=== PATIENT | female | born 1940 | race Caucasian/White ===

== ENCOUNTER 2018-05-12 09:54 | Inpatient (IN) | payer MEDICARE, MEDICAID ==
[~2018-05-12] VITALS: Ht 157.5 cm; Wt 94.3 kg
[2018-05-12 15:05] LABS: BG BASE EXCESS -1.5 mmol/L (-2.0-2.0); BG CARBOXYHEMOGLOBIN 1.1 % (0.5-1.5); BG DEOXYHEMOGLOBIN 6.5 % (0.0-5.0); BG FRACTION INSPIRED OXYGEN 21; BG HCO3 ACT 25.5 mmol/L (22.0-26.0); BG OXYGEN SATURATION 93.4 % (92.0-98.5); BG OXYHEMOGLOBIN 92.4 % (94.0-97.0); BG PCO2 52.3 mmHg (35.0-45.0); BG PH 7.306 (7.350-7.450); BG PO2 75.2 mmHg (75.0-100.0); BG SAMPLE SITE RIGHT BRACHIAL; BG TOTAL HEMOGLOBIN 13.1 g/dL (12.0-18.0); BG VENT MODE ROOM AIR
[2018-05-12 15:23] LABS: BASOPHILS % 0.4 % (0.0-2.0); EOSINOPHILS % 2.2 % (0.0-5.0); HEMATOCRIT. 37.9 % (36.0-48.0); HEMOGLOBIN. 12.6 g/dL (12.0-16.0); MEAN CORPUSCULAR HEMOGLOBIN 34.9 pg (28.0-32.0); MEAN CORPUSCULAR VOLUME 104.8 fL (81.0-99.0); MEAN PLATELET VOLUME 8.4 fl (7.4-10.4); MONOCYTES % 9.9 % (2.0-8.0); NEUTROPHILS % 68.5 % (40.0-76.0); PLATELET 264 x1000/uL (130-400); RED BLOOD CELL COUNT 3.61 mill/uL (4.2-5.4); RED CELL DISTRIBUTION WIDTH 14.9 % (11.6-14.6)
[2018-05-12 15:28] LABS: INR 1.2; PARTIAL THROMBOPLASTIN TIME 30.4 sec (23.4-31.0); PROTHROMBIN TIME 12.3 sec (9.1-11.1)
[2018-05-12] MEDS ORDERED: DEXTROSE 50% WATER 50ML SYRINGE IV ONE ×3 (15:52→21:30)
[2018-05-12 17:20] LABS: CHLORIDE 96 mEq/L (98-107)
[2018-05-12 17:27] LABS: PHOSPHORUS 5.2 mg/dL (2.5-4.9)
[2018-05-12] MEDS ORDERED: DEXT 5%/0.45% NACL 1000ML 1,000 ML IV SCH (22:38)
[2018-05-12] MEDS ORDERED: MAGNESIUM/ALUMINUM HYDROXIDE/SIMETHICONE 30ML UDC PO PRN (22:45)
[2018-05-12] MEDS ORDERED: CLONIDINE 0.1MG TABLET PO PRN (22:45)
[2018-05-12] MEDS ORDERED: ACETAMINOPHEN 325MG TABLET PO PRN (22:45)
[2018-05-12] MEDS ORDERED: DEXTROSE 50% WATER 50ML SYRINGE IV PRN (22:45)
[2018-05-12] MEDS ORDERED: ONDANSETRON HCL 4MG/2ML INJ IV PRN (22:45)
[2018-05-13] VITALS: BP 142/58
[2018-05-13 00:45] VITALS: BP 142/58
[2018-05-13 04:11] VITALS: BP 167/76
[2018-05-13] MEDS: BLOOD SUGAR DIAGNOSTIC STRIP TEST SCH ×4 (07:44→21:08)
[2018-05-13] MEDS: INSULIN LISPRO 100 UNITS/ML SUBCUT SCH ×4 (07:50→21:16)
[2018-05-13] MEDS ORDERED: LOSA50TA20 PO (11:50)
[2018-05-13] MEDS ORDERED: POTA20TA82 PO (11:50)
[2018-05-13] MEDS ORDERED: FURO80TA3 PO (11:50)
[2018-05-13] MEDS ORDERED: SERT25TA PO (11:50)
[2018-05-13] MEDS ORDERED: CARV6.2548 PO (11:50)
[2018-05-13] MEDS ORDERED: SEVE800T8 PO (11:50)
[2018-05-13] MEDS ORDERED: OMEP40CA34 PO (11:50)
[2018-05-13] MEDS ORDERED: GABA-529 MT (11:50)
[2018-05-13] MEDS ORDERED: GEMF600T PO (11:50)
[2018-05-13] MEDS ORDERED: CALC0.253 PO (11:50)
[2018-05-13] MEDS ORDERED: DONE10TA11 MT (11:50)
[2018-05-13 12:00] VITALS: BP 144/80
[2018-05-13] MEDS: CALCITRIOL 0.25MCG CAPSULE PO SCH (12:48)
[2018-05-13] MEDS: GABAPENTIN 100MG CAPSULE PO SCH ×2 (12:48→17:46)
[2018-05-13] MEDS: OMEPRAZOLE 20MG CAPSULE EXTENDED RELEASE PO SCH (12:48)
[2018-05-13] MEDS: POTASSIUM CHLORIDE 20MEQ TABLET SR PO SCH (12:48)
[2018-05-13] MEDS: FUROSEMIDE 80MG TABLET PO SCH (12:49)
[2018-05-13] MEDS: CARVEDILOL 6.25 MG TABLET PO SCH ×2 (12:49→21:08)
[2018-05-13] MEDS: LOSARTAN POTASSIUM 50 MG TABLET PO SCH ×2 (12:49→21:08)
[2018-05-13] MEDS ORDERED: MEDICATION NOT ON FORMULARY EA (Gabapentin 2 CAP) MT SCH (13:00)
[2018-05-13] MEDS: SERTRALINE HCL 25MG TABLET PO SCH (14:24)
[2018-05-13] MEDS ORDERED: MEDICATION NOT ON FORMULARY EA (Losartan Potassium 50 MG) PO SCH (17:00)
[2018-05-13] MEDS ORDERED: GEMFIBROZIL 600 MG PO SCH (17:00)
[2018-05-13] MEDS: GEMFIBROZIL 600MG TABLET PO SCH (17:46)
[2018-05-13 20:00] VITALS: BP 98/68
[2018-05-13] MEDS: DONEPEZIL HCL 10MG TABLET PO SCH (21:08)
[2018-05-14] VITALS (7 sets, daily range): BP systolic 100–122; BP diastolic 50–80
[2018-05-14] MEDS: BLOOD SUGAR DIAGNOSTIC STRIP TEST SCH ×4 (06:32→21:06)
[2018-05-14] MEDS: OMEPRAZOLE 20MG CAPSULE EXTENDED RELEASE PO SCH (06:32)
[2018-05-14] MEDS ORDERED: MEDICATION NOT ON FORMULARY EA (Omeprazole 40 MG) PO SCH (07:20)
[2018-05-14] MEDS: INSULIN LISPRO 100 UNITS/ML SUBCUT SCH ×4 (08:07→21:19)
[2018-05-14] MEDS ORDERED: MEDICATION NOT ON FORMULARY EA (Furosemide 80 MG) PO SCH (09:00)
[2018-05-14] MEDS ORDERED: SERTRALINE HCL 25 MG PO SCH (09:00)
[2018-05-14] MEDS ORDERED: MEDICATION NOT ON FORMULARY EA (Calcitriol 0.25 MCG) PO SCH ×2 (09:00)
[2018-05-14] MEDS: CARVEDILOL 6.25 MG TABLET PO SCH ×2 (09:00→21:05)
[2018-05-14] MEDS: LOSARTAN POTASSIUM 50 MG TABLET PO SCH ×2 (09:00→21:05)
[2018-05-14] MEDS: GABAPENTIN 100MG CAPSULE PO SCH ×3 (09:24→17:48)
[2018-05-14] MEDS: CALCITRIOL 0.25MCG CAPSULE PO SCH (09:24)
[2018-05-14] MEDS: FUROSEMIDE 80MG TABLET PO SCH (09:24)
[2018-05-14] MEDS: SERTRALINE HCL 25MG TABLET PO SCH (09:24)
[2018-05-14] MEDS: GEMFIBROZIL 600MG TABLET PO SCH ×2 (09:25→17:48)
[2018-05-14] MEDS: POTASSIUM CHLORIDE 20MEQ TABLET SR PO SCH (09:25)
[2018-05-14] MEDS: SEVELAMER CARBONATE 800 MG TABLET PO SCH (17:48)
[2018-05-14] MEDS: DONEPEZIL HCL 10MG TABLET PO SCH (21:06)
[2018-05-15] VITALS: BP 109/60
[2018-05-15 04:00] VITALS: BP 110/70
[2018-05-15] MEDS: OMEPRAZOLE 20MG CAPSULE EXTENDED RELEASE PO SCH (06:30)
[2018-05-15] MEDS: BLOOD SUGAR DIAGNOSTIC STRIP TEST SCH ×4 (06:30→21:00)
[2018-05-15 08:00] VITALS: BP 114/53
[2018-05-15] MEDS: INSULIN LISPRO 100 UNITS/ML SUBCUT SCH ×4 (08:03→21:00)
[2018-05-15] MEDS: GABAPENTIN 100MG CAPSULE PO SCH ×3 (08:27→18:59)
[2018-05-15] MEDS: CALCITRIOL 0.25MCG CAPSULE PO SCH (08:27)
[2018-05-15] MEDS: GEMFIBROZIL 600MG TABLET PO SCH ×2 (08:28→18:58)
[2018-05-15] MEDS: LOSARTAN POTASSIUM 50 MG TABLET PO SCH ×2 (08:28→21:10)
[2018-05-15] MEDS: POTASSIUM CHLORIDE 20MEQ TABLET SR PO SCH (08:28)
[2018-05-15] MEDS: SERTRALINE HCL 25MG TABLET PO SCH (08:28)
[2018-05-15] MEDS: SEVELAMER CARBONATE 800 MG TABLET PO SCH ×3 (08:28→18:59)
[2018-05-15] MEDS: FUROSEMIDE 80MG TABLET PO SCH (08:28)
[2018-05-15 12:00] VITALS: BP 116/50
[2018-05-15] MEDS: CARVEDILOL 6.25 MG TABLET PO SCH ×2 (13:21→21:11)
[2018-05-15 16:00] VITALS: BP 115/56
[2018-05-15 20:00] VITALS: BP 120/61
[2018-05-15] MEDS: DONEPEZIL HCL 10MG TABLET PO SCH (21:10)
[2018-05-16] VITALS (7 sets, daily range): BP systolic 104–144; BP diastolic 46–86
[2018-05-16] MEDS: BLOOD SUGAR DIAGNOSTIC STRIP TEST SCH ×4 (06:20→21:04)
[2018-05-16] MEDS: OMEPRAZOLE 20MG CAPSULE EXTENDED RELEASE PO SCH (06:21)
[2018-05-16] MEDS: FUROSEMIDE 80MG TABLET PO SCH (08:40)
[2018-05-16] MEDS: SERTRALINE HCL 25MG TABLET PO SCH (08:40)
[2018-05-16] MEDS: POTASSIUM CHLORIDE 20MEQ TABLET SR PO SCH (08:40)
[2018-05-16] MEDS: GEMFIBROZIL 600MG TABLET PO SCH ×2 (08:40→17:12)
[2018-05-16] MEDS: GABAPENTIN 100MG CAPSULE PO SCH ×3 (08:41→17:12)
[2018-05-16] MEDS: CALCITRIOL 0.25MCG CAPSULE PO SCH (08:41)
[2018-05-16] MEDS: LOSARTAN POTASSIUM 50 MG TABLET PO SCH ×2 (08:41→20:29)
[2018-05-16] MEDS: SEVELAMER CARBONATE 800 MG TABLET PO SCH ×3 (08:41→17:12)
[2018-05-16] MEDS: INSULIN LISPRO 100 UNITS/ML SUBCUT SCH ×4 (08:45→21:08)
[2018-05-16] MEDS: CARVEDILOL 6.25 MG TABLET PO SCH ×2 (12:22→20:28)
[2018-05-16] MEDS: DONEPEZIL HCL 10MG TABLET PO SCH (21:07)
[2018-05-16 22:12] LABS: BASOPHILS % 0.5 % (0.0-2.0); EOSINOPHILS % 2.1 % (0.0-5.0); HEMATOCRIT. 33.4 % (36.0-48.0); HEMOGLOBIN. 11.2 g/dL (12.0-16.0); LYMPHOCYTES % 17.7 % (20.0-50.0); MEAN CORPUSCULAR HEMOGLOBIN 34.6 pg (28.0-32.0); MEAN CORPUSCULAR VOLUME 103.3 fL (81.0-99.0); MEAN PLATELET VOLUME 8.3 fl (7.4-10.4); MONOCYTES % 11.4 % (2.0-8.0); NEUTROPHILS % 68.3 % (40.0-76.0); PLATELET 155 x1000/uL (130-400); RED BLOOD CELL COUNT 3.23 mill/uL (4.2-5.4); RED CELL DISTRIBUTION WIDTH 14.6 % (11.6-14.6)
[2018-05-17] VITALS (8 sets, daily range): BP systolic 88–139; BP diastolic 46–60
[2018-05-17] MEDS: OMEPRAZOLE 20MG CAPSULE EXTENDED RELEASE PO SCH (06:00)
[2018-05-17] MEDS: BLOOD SUGAR DIAGNOSTIC STRIP TEST SCH ×4 (07:20→20:30)
[2018-05-17] MEDS: SEVELAMER CARBONATE 800 MG TABLET PO SCH ×3 (07:36→16:58)
[2018-05-17] MEDS: POTASSIUM CHLORIDE 20MEQ TABLET SR PO SCH (07:36)
[2018-05-17] MEDS: LOSARTAN POTASSIUM 50 MG TABLET PO SCH ×2 (07:37→20:21)
[2018-05-17] MEDS: CALCITRIOL 0.25MCG CAPSULE PO SCH (07:37)
[2018-05-17] MEDS: SERTRALINE HCL 25MG TABLET PO SCH (07:37)
[2018-05-17] MEDS: GEMFIBROZIL 600MG TABLET PO SCH ×2 (07:37→16:58)
[2018-05-17] MEDS: GABAPENTIN 100MG CAPSULE PO SCH ×3 (07:37→16:58)
[2018-05-17] MEDS: FUROSEMIDE 80MG TABLET PO SCH (07:37)
[2018-05-17] MEDS: INSULIN LISPRO 100 UNITS/ML SUBCUT SCH ×4 (07:42→20:44)
[2018-05-17 07:48] LABS: BASOPHILS % 0.4 % (0.0-2.0); HEMOGLOBIN. 11.4 g/dL (12.0-16.0); LYMPHOCYTES % 12.7 % (20.0-50.0); MEAN CORPUSCULAR HEMOGLOBIN 34.5 pg (28.0-32.0); MEAN CORPUSCULAR VOLUME 103.2 fL (81.0-99.0); MEAN PLATELET VOLUME 8.8 fl (7.4-10.4); MONOCYTES % 8.5 % (2.0-8.0); NEUTROPHILS % 76.4 % (40.0-76.0); PLATELET 169 x1000/uL (130-400); RED BLOOD CELL COUNT 3.29 mill/uL (4.2-5.4); RED CELL DISTRIBUTION WIDTH 14.5 % (11.6-14.6)
[2018-05-17] MEDS: CARVEDILOL 6.25 MG TABLET PO SCH ×2 (08:22→20:21)
[2018-05-17] MEDS: LACTULOSE 20G/30ML UDC PO SCH ×3 (10:47→21:16)
[2018-05-17] MEDS: DONEPEZIL HCL 10MG TABLET PO SCH (20:41)
[2018-05-18] VITALS: BP 99/51
[2018-05-18 04:00] VITALS: BP 100/50
[2018-05-18] MEDS: LACTULOSE 20G/30ML UDC PO SCH ×2 (06:14→13:20)
[2018-05-18] MEDS: OMEPRAZOLE 20MG CAPSULE EXTENDED RELEASE PO SCH (06:15)
[2018-05-18] MEDS: BLOOD SUGAR DIAGNOSTIC STRIP TEST SCH ×2 (06:22→13:12)
[2018-05-18 08:01] VITALS: BP 110/83
[2018-05-18 08:25] LABS: HEMATOCRIT. 34.4 % (36.0-48.0); HEMOGLOBIN. 11.4 g/dL (12.0-16.0); MEAN CORPUSCULAR HEMOGLOBIN 34.4 pg (28.0-32.0); MEAN PLATELET VOLUME 9.2 fl (7.4-10.4); PLATELET 171 x1000/uL (130-400); RED BLOOD CELL COUNT 3.31 mill/uL (4.2-5.4); RED CELL DISTRIBUTION WIDTH 14.3 % (11.6-14.6)
[2018-05-18] MEDS: INSULIN LISPRO 100 UNITS/ML SUBCUT SCH ×2 (08:27→13:18)
[2018-05-18] MEDS: CALCITRIOL 0.25MCG CAPSULE PO SCH (08:32)
[2018-05-18] MEDS: GEMFIBROZIL 600MG TABLET PO SCH (08:32)
[2018-05-18] MEDS: GABAPENTIN 100MG CAPSULE PO SCH ×2 (08:32→13:20)
[2018-05-18] MEDS: SEVELAMER CARBONATE 800 MG TABLET PO SCH ×2 (08:32→13:20)
[2018-05-18] MEDS: FUROSEMIDE 80MG TABLET PO SCH (08:32)
[2018-05-18] MEDS: POTASSIUM CHLORIDE 20MEQ TABLET SR PO SCH (08:32)
[2018-05-18] MEDS: SERTRALINE HCL 25MG TABLET PO SCH (08:32)
[2018-05-18] MEDS: LOSARTAN POTASSIUM 50 MG TABLET PO SCH (09:00)
[2018-05-18] MEDS: CARVEDILOL 6.25 MG TABLET PO SCH (09:00)
[2018-05-18 12:25] VITALS: BP 82/56
[2018-05-18 13:50] LABS: PLATELET ESTIMATE NORMAL
[2018-05-18 16:40] VITALS: BP 114/54
[2018-05-18] MEDS ORDERED: OXYCODONE HCL 5MG TABLET PO SCH (17:00)
[2018-05-18 17:24] VITALS: BP 114/54
== END 2018-05-18 19:09 | disposition home health service (06) | DRG 640 ==
LOC: ER 09:54 → ENRESERV 15:35 → EDBEDREQ 17:52 → 6WST 18:06 → EDBEDREQ 18:09 → EDBEDREQTM 18:09 → 6WST 05-14 21:15
PROVIDERS: ADMIT Internal Medicine; ATTEND Internal Medicine
DX: E66.01 Morbid (severe) obesity due to excess calories (principal); E43 Unspecified severe protein-calorie malnutrition; G93.41 Metabolic encephalopathy; N18.6 End stage renal disease; I13.11 Hypertensive heart and chronic kidney disease without heart failure, with stage 5 chronic kidney disease, or end stage renal disease; E87.1 Hypo-osmolality and hyponatremia; I67.82 Cerebral ischemia; E11.649 Type 2 diabetes mellitus with hypoglycemia without coma; M25.562 Pain in left knee; R26.9 Unspecified abnormalities of gait and mobility; E11.22 Type 2 diabetes mellitus with diabetic chronic kidney disease; E83.39 Other disorders of phosphorus metabolism; M16.11 Unilateral primary osteoarthritis, right hip; R29.6 Repeated falls; Z79.4 Long term (current) use of insulin; Z82.49 Family history of ischemic heart disease and other diseases of the circulatory system; Z83.3 Family history of diabetes mellitus; Z86.73 Personal history of transient ischemic attack (TIA), and cerebral infarction without residual deficits; Z99.2 Dependence on renal dialysis; Z68.38 Body mass index [BMI] 38.0-38.9, adult
CPT/HCPCS: 36415; 36600; 70551; 71045; 72192; 73521; 73562; 73610; 73700; 80048; 82140; 82375; 82805; 82962; 83735; 84100; 84484; 86850; 86900; 92523; 92610; 93005; 97162; 97167; 97530; 97535; 99291; J1815; J2405

== ENCOUNTER 2018-05-20 14:09 | Inpatient (IN) | payer MEDICARE, MEDICAID ==
[~2018-05-20] VITALS: Ht 152.4 cm; Wt 90.3 kg
[~2018-05-20 14:09] MED LIST: CALC0.253 PO; CARV6.2548 PO; DONE10TA11 MT; FURO80TA3 PO; GABA-529 MT; GEMF600T PO; LOSA50TA20 PO; OMEP40CA34 PO; POTA20TA82 PO; SERT25TA PO; SEVE800T8 PO
[2018-05-20] MEDS ORDERED: LEVOFLOXACIN 750MG PREMIX 150 ML IV ONE (15:00)
[2018-05-20] MEDS ORDERED: SODIUM CHLORIDE 0.9% 1000ML BAG (SEPSIS BOLUS) IV ONE (15:00)
[2018-05-20] MEDS ORDERED: ASPIRIN 81MG TABLET PO ONE (15:00)
[2018-05-20] MEDS ORDERED: IPRATROPIUM BROMIDE (0.02%) 0.5MG/2.5ML NEB HHN STA (15:07)
[2018-05-20] MEDS ORDERED: ALBUTEROL (0.083%) 2.5MG/3ML NEB HHN STA (15:07)
[2018-05-20] MEDS ORDERED: METHYLPREDNISOLONE SOD SUCC 125 MG/2 ML VIAL IV STA (15:07)
[2018-05-20 15:56] LABS: HEMATOCRIT. 33.4 % (36.0-48.0); HEMOGLOBIN. 11.1 g/dL (12.0-16.0); MEAN CORPUSCULAR HEMOGLOBIN 34.4 pg (28.0-32.0); MEAN CORPUSCULAR VOLUME 103.5 fL (81.0-99.0); MEAN PLATELET VOLUME 8.9 fl (7.4-10.4); PLATELET 159 x1000/uL (130-400); RED BLOOD CELL COUNT 3.23 mill/uL (4.2-5.4); RED CELL DISTRIBUTION WIDTH 14.5 % (11.6-14.6)
[2018-05-20 16:01] LABS: CHLORIDE 91 mEq/L (98-107)
[2018-05-20 16:02] LABS: PARTIAL THROMBOPLASTIN TIME 42.1 sec (23.4-31.0); PROTHROMBIN TIME 19.5 sec (9.1-11.1)
[2018-05-20 16:41] LABS: PLATELET ESTIMATE NORMAL
[2018-05-20] MEDS ORDERED: IPRATROPIUM/ALBUTEROL 0.5-3(2.5)MG/3ML NEB INH PRN (19:45)
[2018-05-20] MEDS ORDERED: CLONIDINE 0.1MG TABLET PO PRN (19:45)
[2018-05-20] MEDS ORDERED: LEVOFLOXACIN 500MG PREMIX 100 ML IV SCH (19:45)
[2018-05-20] MEDS ORDERED: ONDANSETRON HCL 4MG/2ML INJ IV PRN (19:45)
[2018-05-20 20:23] LABS: COLOR URINE YELLOW (YELLOW)
[2018-05-20 20:24] LABS: CLARITY URINE CLEAR (CLEAR); SPECIFIC GRAVITY URINE 1.016 (1.005-1.030)
[2018-05-20 20:26] LABS: PROTEIN URINE 1+ (NEGATIVE)
[2018-05-20 20:27] LABS: KETONES URINE NEGATIVE (NEGATIVE); OCCULT BLOOD URINE 2+ (NEGATIVE)
[2018-05-20 20:28] LABS: LEUKOCYTE ESTERASE URINE 2+ (NEGATIVE); NITRITE URINE NEGATIVE (NEGATIVE); UROBILINOGEN URINE 0.2 E.U./dL (0.2-1.0)
[2018-05-21] VITALS (15 sets, daily range): BP systolic 94–166; BP diastolic 53–126
[2018-05-21] MEDS: IPRATROPIUM/ALBUTEROL 0.5-3(2.5)MG/3ML NEB HHN SCH ×4 (01:54→21:45)
[2018-05-21] MEDS: BLOOD SUGAR DIAGNOSTIC STRIP TEST SCH ×4 (06:47→20:59)
[2018-05-21] MEDS: SODIUM CHLORIDE 0.9% INJ 3ML FLUSH IVF SCH ×3 (06:48→20:59)
[2018-05-21] MEDS: INSULIN LISPRO 100 UNITS/ML SUBCUT SCH ×4 (08:20→20:59)
[2018-05-21] MEDS: OMEPRAZOLE 20MG CAPSULE EXTENDED RELEASE PO SCH (09:30)
[2018-05-21] MEDS: SERTRALINE HCL 25MG TABLET PO SCH (09:30)
[2018-05-21] MEDS: CALCITRIOL 0.25MCG CAPSULE PO SCH (09:30)
[2018-05-21] MEDS: GABAPENTIN 100MG CAPSULE PO SCH ×3 (09:30→16:38)
[2018-05-21] MEDS: CARVEDILOL 6.25 MG TABLET PO SCH ×2 (09:30→22:10)
[2018-05-21] MEDS: SEVELAMER CARBONATE 800 MG TABLET PO SCH ×2 (12:08→16:38)
[2018-05-21] MEDS ORDERED: MEDICATION NOT ON FORMULARY EA (Sevelamer Carbonate (Renvela) 800 MG) PO SCH (13:00)
[2018-05-21] MEDS ORDERED: MEDICATION NOT ON FORMULARY EA (Gabapentin 2 CAP) MT SCH (13:00)
[2018-05-21] MEDS ORDERED: HEPARIN SODIUM 1,000 UNIT/1ML VIAL IV SCH (13:00)
[2018-05-21] MEDS: GEMFIBROZIL 600MG TABLET PO SCH (16:38)
[2018-05-21] MEDS ORDERED: GEMFIBROZIL 600 MG PO SCH (17:00)
[2018-05-21] MEDS: DIPHENHYDRAMINE 50MG/ML VIAL IV PRN (22:16)
[2018-05-21] MEDS: DONEPEZIL HCL 10MG TABLET PO SCH (22:19)
[2018-05-22] VITALS (14 sets, daily range): BP systolic 99–176; BP diastolic 48–109
[2018-05-22] MEDS: IPRATROPIUM/ALBUTEROL 0.5-3(2.5)MG/3ML NEB HHN SCH ×4 (02:42→20:55)
[2018-05-22] MEDS: DIPHENHYDRAMINE 50MG/ML VIAL IV PRN (02:56)
[2018-05-22] MEDS: DEXTROSE 50% WATER 50ML SYRINGE IV PRN ×2 (05:39→11:34)
[2018-05-22] MEDS: SODIUM CHLORIDE 0.9% INJ 3ML FLUSH IVF SCH ×3 (06:02→21:44)
[2018-05-22] MEDS: OMEPRAZOLE 20MG CAPSULE EXTENDED RELEASE PO SCH (06:03)
[2018-05-22] MEDS: BLOOD SUGAR DIAGNOSTIC STRIP TEST SCH ×4 (06:03→21:43)
[2018-05-22] MEDS ORDERED: MEDICATION NOT ON FORMULARY EA (Omeprazole 40 MG) PO SCH (06:50)
[2018-05-22] MEDS: INSULIN LISPRO 100 UNITS/ML SUBCUT SCH ×4 (07:20→21:00)
[2018-05-22] MEDS: GEMFIBROZIL 600MG TABLET PO SCH ×2 (08:22→17:00)
[2018-05-22] MEDS: SERTRALINE HCL 25MG TABLET PO SCH (08:22)
[2018-05-22] MEDS: CALCITRIOL 0.25MCG CAPSULE PO SCH (08:22)
[2018-05-22] MEDS: CARVEDILOL 6.25 MG TABLET PO SCH ×2 (08:22→21:00)
[2018-05-22] MEDS: SEVELAMER CARBONATE 800 MG TABLET PO SCH ×3 (08:22→17:20)
[2018-05-22] MEDS: GABAPENTIN 100MG CAPSULE PO SCH (08:23)
[2018-05-22] MEDS ORDERED: SERTRALINE HCL 25 MG PO SCH (09:00)
[2018-05-22] MEDS ORDERED: MEDICATION NOT ON FORMULARY EA (Calcitriol 0.25 MCG) PO SCH (09:00)
[2018-05-22] MEDS ORDERED: DIPHENHYDRAMINE 50MG/ML VIAL IV PRN (13:15)
[2018-05-22] MEDS ORDERED: DEXTROSE 10% WATER 500 ML IV ONE (13:15)
[2018-05-22] MEDS: LEVOFLOXACIN 500MG PREMIX 100 ML IV SCH (14:27)
[2018-05-22 16:17] LABS: CHLORIDE 95 mEq/L (98-107)
[2018-05-22 16:23] LABS: PHOSPHORUS 6.6 mg/dL (2.5-4.9)
[2018-05-22] MEDS ORDERED: LEVOFLOXACIN 500MG PREMIX 100 ML IV SCH (17:00)
[2018-05-22] MEDS: DONEPEZIL HCL 10MG TABLET PO SCH (21:00)
[2018-05-22] MEDS ORDERED: LORAZEPAM 2MG/ML CPJ IM PRN (23:15)
[2018-05-22] MEDS: LORAZEPAM 2MG/ML CPJ IV PRN (23:36)
[2018-05-23] VITALS (13 sets, daily range): BP systolic 109–184; BP diastolic 51–112
[2018-05-23] MEDS: SODIUM CHLORIDE 0.9% INJ 3ML FLUSH IVF SCH ×3 (06:24→22:15)
[2018-05-23] MEDS: OMEPRAZOLE 20MG CAPSULE EXTENDED RELEASE PO SCH (06:24)
[2018-05-23] MEDS: BLOOD SUGAR DIAGNOSTIC STRIP TEST SCH ×4 (06:24→22:14)
[2018-05-23] MEDS: DEXTROSE 50% WATER 50ML SYRINGE IV PRN (06:32)
[2018-05-23] MEDS: SEVELAMER CARBONATE 800 MG TABLET PO SCH ×3 (07:20→17:42)
[2018-05-23] MEDS: INSULIN LISPRO 100 UNITS/ML SUBCUT SCH ×4 (07:20→22:14)
[2018-05-23] MEDS: IPRATROPIUM/ALBUTEROL 0.5-3(2.5)MG/3ML NEB HHN SCH ×4 (08:32→21:01)
[2018-05-23] MEDS: CALCITRIOL 0.25MCG CAPSULE PO SCH (09:00)
[2018-05-23] MEDS: GEMFIBROZIL 600MG TABLET PO SCH ×2 (09:00→17:42)
[2018-05-23] MEDS: CARVEDILOL 6.25 MG TABLET PO SCH ×2 (09:00→19:41)
[2018-05-23] MEDS: SERTRALINE HCL 25MG TABLET PO SCH (09:00)
[2018-05-23] MEDS: GUAIFENESIN 200MG/10ML SUGAR FREE UDC PO PRN (19:36)
[2018-05-23] MEDS: DONEPEZIL HCL 10MG TABLET PO SCH (19:36)
[2018-05-24] VITALS (13 sets, daily range): BP systolic 116–154; BP diastolic 41–107
[2018-05-24] MEDS: IPRATROPIUM/ALBUTEROL 0.5-3(2.5)MG/3ML NEB HHN SCH ×3 (01:21→21:33)
[2018-05-24] MEDS: BLOOD SUGAR DIAGNOSTIC STRIP TEST SCH ×4 (05:49→20:56)
[2018-05-24] MEDS: SODIUM CHLORIDE 0.9% INJ 3ML FLUSH IVF SCH ×3 (05:50→20:59)
[2018-05-24] MEDS: INSULIN LISPRO 100 UNITS/ML SUBCUT SCH ×4 (07:20→20:59)
[2018-05-24] MEDS: FAMOTIDINE 20MG TABLET PO SCH (08:12)
[2018-05-24] MEDS: CALCITRIOL 0.25MCG CAPSULE PO SCH (08:12)
[2018-05-24] MEDS: GEMFIBROZIL 600MG TABLET PO SCH ×2 (08:12→16:50)
[2018-05-24] MEDS: SERTRALINE HCL 25MG TABLET PO SCH (08:12)
[2018-05-24] MEDS: SEVELAMER CARBONATE 800 MG TABLET PO SCH ×3 (08:12→16:50)
[2018-05-24] MEDS: CARVEDILOL 6.25 MG TABLET PO SCH ×2 (08:13→20:56)
[2018-05-24 09:47] LABS: BASOPHILS % 0.4 % (0.0-2.0); EOSINOPHILS % 0.6 % (0.0-5.0); HEMATOCRIT. 30.4 % (36.0-48.0); HEMOGLOBIN. 10.1 g/dL (12.0-16.0); LYMPHOCYTES % 8.2 % (20.0-50.0); MEAN CORPUSCULAR HEMOGLOBIN 34.3 pg (28.0-32.0); MEAN CORPUSCULAR VOLUME 103.3 fL (81.0-99.0); MEAN PLATELET VOLUME 8.3 fl (7.4-10.4); MONOCYTES % 8.2 % (2.0-8.0); NEUTROPHILS % 82.6 % (40.0-76.0); PLATELET 137 x1000/uL (130-400); RED BLOOD CELL COUNT 2.95 mill/uL (4.2-5.4)
[2018-05-24] MEDS: LEVOFLOXACIN 500MG PREMIX 100 ML IV SCH (14:11)
[2018-05-24] MEDS ORDERED: IOHEXOL-300 100 ML BOTTLE ONE (15:01)
[2018-05-24] MEDS: ACETAMINOPHEN 325MG TABLET PO PRN (19:04)
[2018-05-24] MEDS: DONEPEZIL HCL 10MG TABLET PO SCH (20:55)
[2018-05-25] VITALS (11 sets, daily range): BP systolic 93–168; BP diastolic 46–79
[2018-05-25] MEDS: IPRATROPIUM/ALBUTEROL 0.5-3(2.5)MG/3ML NEB HHN SCH ×4 (01:31→20:51)
[2018-05-25 06:52] LABS: BASOPHILS % 0.1 % (0.0-2.0); EOSINOPHILS % 0.5 % (0.0-5.0); HEMATOCRIT. 29.4 % (36.0-48.0); HEMOGLOBIN. 9.8 g/dL (12.0-16.0); LYMPHOCYTES % 7.3 % (20.0-50.0); MEAN CORPUSCULAR HEMOGLOBIN 34.5 pg (28.0-32.0); MEAN CORPUSCULAR VOLUME 103.5 fL (81.0-99.0); MEAN PLATELET VOLUME 8.4 fl (7.4-10.4); MONOCYTES % 9.1 % (2.0-8.0); PLATELET 124 x1000/uL (130-400); RED BLOOD CELL COUNT 2.84 mill/uL (4.2-5.4); RED CELL DISTRIBUTION WIDTH 13.6 % (11.6-14.6)
[2018-05-25] MEDS: SODIUM CHLORIDE 0.9% INJ 3ML FLUSH IVF SCH ×3 (06:59→21:21)
[2018-05-25] MEDS: BLOOD SUGAR DIAGNOSTIC STRIP TEST SCH ×4 (06:59→21:00)
[2018-05-25] MEDS: INSULIN LISPRO 100 UNITS/ML SUBCUT SCH ×4 (07:20→21:00)
[2018-05-25] MEDS: SEVELAMER CARBONATE 800 MG TABLET PO SCH ×3 (10:16→16:34)
[2018-05-25] MEDS: SERTRALINE HCL 25MG TABLET PO SCH (10:16)
[2018-05-25] MEDS: GUAIFENESIN 200MG/10ML SUGAR FREE UDC PO PRN (10:16)
[2018-05-25] MEDS: FAMOTIDINE 20MG TABLET PO SCH (10:16)
[2018-05-25] MEDS: CALCITRIOL 0.25MCG CAPSULE PO SCH (10:16)
[2018-05-25] MEDS: CARVEDILOL 6.25 MG TABLET PO SCH ×2 (10:17→21:00)
[2018-05-25] MEDS: GEMFIBROZIL 600MG TABLET PO SCH ×2 (10:17→16:34)
[2018-05-25] MEDS: DONEPEZIL HCL 10MG TABLET PO SCH (21:00)
[2018-05-26] VITALS (12 sets, daily range): BP systolic 97–161; BP diastolic 32–99
[2018-05-26] MEDS: IPRATROPIUM/ALBUTEROL 0.5-3(2.5)MG/3ML NEB HHN SCH ×4 (04:24→21:21)
[2018-05-26] MEDS: SODIUM CHLORIDE 0.9% INJ 3ML FLUSH IVF SCH ×3 (06:19→21:22)
[2018-05-26] MEDS: BLOOD SUGAR DIAGNOSTIC STRIP TEST SCH ×4 (06:44→21:18)
[2018-05-26] MEDS: INSULIN LISPRO 100 UNITS/ML SUBCUT SCH ×4 (07:20→21:21)
[2018-05-26] MEDS: CALCITRIOL 0.25MCG CAPSULE PO SCH (08:01)
[2018-05-26] MEDS: CARVEDILOL 6.25 MG TABLET PO SCH ×2 (08:01→21:13)
[2018-05-26] MEDS: GEMFIBROZIL 600MG TABLET PO SCH ×2 (08:01→17:15)
[2018-05-26] MEDS: FAMOTIDINE 20MG TABLET PO SCH (08:01)
[2018-05-26] MEDS: SEVELAMER CARBONATE 800 MG TABLET PO SCH ×3 (08:01→17:15)
[2018-05-26] MEDS: SERTRALINE HCL 50MG TABLET PO SCH (08:01)
[2018-05-26] MEDS ORDERED: LEVOFLOXACIN 500MG TABLET PO SCH (11:00)
[2018-05-26] MEDS: MEGESTROL ACETATE 400 MG/10 ML UDC PO SCH (17:15)
[2018-05-26] MEDS: DONEPEZIL HCL 10MG TABLET PO SCH (21:13)
[2018-05-26] MEDS: GUAIFENESIN 200MG/10ML SUGAR FREE UDC PO PRN (21:26)
[2018-05-26] MEDS: LORAZEPAM 2MG/ML CPJ IV PRN (21:26)
[2018-05-27] VITALS (8 sets, daily range): BP systolic 115–161; BP diastolic 59–84
[2018-05-27] MEDS: IPRATROPIUM/ALBUTEROL 0.5-3(2.5)MG/3ML NEB HHN SCH ×2 (00:53)
[2018-05-27] MEDS: SODIUM CHLORIDE 0.9% INJ 3ML FLUSH IVF SCH ×3 (05:55→21:05)
[2018-05-27] MEDS: BLOOD SUGAR DIAGNOSTIC STRIP TEST SCH ×4 (07:07→21:45)
[2018-05-27] MEDS: INSULIN LISPRO 100 UNITS/ML SUBCUT SCH ×4 (07:49→21:00)
[2018-05-27] MEDS: SEVELAMER CARBONATE 800 MG TABLET PO SCH ×4 (08:10→18:08)
[2018-05-27] MEDS: FAMOTIDINE 20MG TABLET PO SCH ×2 (09:00→09:17)
[2018-05-27] MEDS: SERTRALINE HCL 50MG TABLET PO SCH ×2 (09:00→09:17)
[2018-05-27] MEDS: GEMFIBROZIL 600MG TABLET PO SCH ×3 (09:00→18:08)
[2018-05-27] MEDS: CALCITRIOL 0.25MCG CAPSULE PO SCH ×2 (09:00→09:17)
[2018-05-27] MEDS: CARVEDILOL 6.25 MG TABLET PO SCH ×3 (09:00→21:05)
[2018-05-27] MEDS: MEGESTROL ACETATE 400 MG/10 ML UDC PO SCH ×3 (09:00→18:08)
[2018-05-27] MEDS: ACETAMINOPHEN 325MG TABLET PO PRN (21:05)
[2018-05-27] MEDS: DONEPEZIL HCL 10MG TABLET PO SCH (21:05)
== END 2018-05-28 00:35 | DRG 193 ==
LOC: ER 14:09 → 3WST 18:24 → EDBEDREQ 18:42 → EDBEDREQTM 18:42 → ENRESERV 22:10 → 7WST 05-27 01:38
PROVIDERS: ADMIT Internal Medicine; ATTEND Internal Medicine
PROC: 5A1D70Z Performance of Urinary Filtration, Intermittent, Less than 6 Hours Per Day (ICD-10-PCS; principal; 2018-05-21)
PROC: 02HV33Z Insertion of Infusion Device into Superior Vena Cava, Percutaneous Approach (ICD-10-PCS; 2018-05-21)
PROC: B548ZZA Ultrasonography of Superior Vena Cava, Guidance (ICD-10-PCS; 2018-05-21)
PROC: 5A1D70Z Performance of Urinary Filtration, Intermittent, Less than 6 Hours Per Day (ICD-10-PCS; 2018-05-22)
PROC: 5A1D70Z Performance of Urinary Filtration, Intermittent, Less than 6 Hours Per Day (ICD-10-PCS; 2018-05-24)
PROC: 5A1D70Z Performance of Urinary Filtration, Intermittent, Less than 6 Hours Per Day (ICD-10-PCS; 2018-05-26)
DX: J18.9 Pneumonia, unspecified organism (principal); G93.41 Metabolic encephalopathy; N18.6 End stage renal disease; I13.2 Hypertensive heart and chronic kidney disease with heart failure and with stage 5 chronic kidney disease, or end stage renal disease; E11.649 Type 2 diabetes mellitus with hypoglycemia without coma; M19.90 Unspecified osteoarthritis, unspecified site; T68.XXXA Hypothermia, initial encounter; F29 Unspecified psychosis not due to a substance or known physiological condition; E11.22 Type 2 diabetes mellitus with diabetic chronic kidney disease; F41.9 Anxiety disorder, unspecified; F32.9 Major depressive disorder, single episode, unspecified; I50.9 Heart failure, unspecified; E11.65 Type 2 diabetes mellitus with hyperglycemia; Z99.81 Dependence on supplemental oxygen; Z99.2 Dependence on renal dialysis; Z79.899 Other long term (current) drug therapy; Z86.73 Personal history of transient ischemic attack (TIA), and cerebral infarction without residual deficits
CPT/HCPCS: 36415; 36556; 70470; 71045; 76937; 80048; 82947; 82962; 83605; 83735; 84100; 84145; 84484; 87804; 93005; 93970; 94640; 94644; 96365; 96366; 96375; 97161; 97530; 99291; C1752; J1200; J1644; J1815; J1956; J2060; J2930; J7030; J7050; J7611; J7620; Q9967; A4315

== ENCOUNTER 2018-07-10 09:10 | Emergency (ER) | payer MEDICARE, MEDICAID ==
[2018-07-10] VITALS (14 sets, daily range): BP systolic 81–126; BP diastolic 44–76
[~2018-07-10] VITALS: Ht 167.6 cm; Wt 80.0 kg
[2018-07-10 10:11] LABS: BASOPHILS % 1.4 % (0.0-2.0); EOSINOPHILS % 4.5 % (0.0-5.0); HEMATOCRIT. 35.3 % (36.0-48.0); HEMOGLOBIN. 11.4 g/dL (12.0-16.0); LYMPHOCYTES % 32.2 % (20.0-50.0); MEAN CORPUSCULAR HEMOGLOBIN 34.5 pg (28.0-32.0); MEAN CORPUSCULAR VOLUME 106.9 fL (81.0-99.0); MEAN PLATELET VOLUME 8.2 fl (7.4-10.4); MONOCYTES % 11.7 % (2.0-8.0); NEUTROPHILS % 50.2 % (40.0-76.0); PLATELET 174 x1000/uL (130-400); RED BLOOD CELL COUNT 3.31 mill/uL (4.2-5.4); RED CELL DISTRIBUTION WIDTH 17.8 % (11.6-14.6)
[2018-07-10 10:14] LABS: CHLORIDE 99 mEq/L (98-107)
[2018-07-10] MEDS ORDERED: CEFAZOLIN 1000MG PREMIX 50 ML IV NR (10:15)
[2018-07-10 10:17] LABS: INR 1.3; PROTHROMBIN TIME 12.7 sec (9.1-11.1)
[2018-07-10] MEDS ORDERED: SODIUM BICARBONATE 4% (2.4MEQ) 5ML VIAL IV ONE (10:22)
[2018-07-10] MEDS ORDERED: LIDOCAINE HCL 1% 20ML VIAL (Pyxis) INJ ONE (10:22)
[2018-07-10] MEDS ORDERED: HEPARIN 1000 UNITS/ML 10ML ONE (10:23)
[2018-07-10] MEDS ORDERED: LIDOCAINE HCL/EPINEPHRINE 1%-EPI 1:100,000 20 ML VIAL ONE (10:38)
[2018-07-10] MEDS ORDERED: FENTANYL CITRATE/PF 50MCG/ML 2ML VIAL ONE (10:44)
[2018-07-10] MEDS ORDERED: FENTANYL CITRATE/PF 50MCG/ML 2ML VIAL IV ONE (11:00)
== END 2018-07-10 16:15 | disposition home or self-care (01) ==
LOC: ER 09:10
DX: T82.42XA Displacement of vascular dialysis catheter, initial encounter (principal); I12.0 Hypertensive chronic kidney disease with stage 5 chronic kidney disease or end stage renal disease; E11.22 Type 2 diabetes mellitus with diabetic chronic kidney disease; E11.65 Type 2 diabetes mellitus with hyperglycemia; N18.6 End stage renal disease; Z99.2 Dependence on renal dialysis; Z98.890 Other specified postprocedural states; Z79.899 Other long term (current) drug therapy
CPT/HCPCS: 36415; 36558; 71045; 76937; 77001; 80053; 85025; 85610; 93005; 96365; 96375; 99284; C1750; C1769; J1644; J3010; J3490; J7040; J7050; 99152; 99153; G0500

== ENCOUNTER 2018-08-21 15:58 | Inpatient (IN) | payer MEDICARE, MEDICAID ==
[~2018-08-21] VITALS: Ht 152.4 cm; Wt 81.6 kg
[2018-08-21] MEDS ORDERED: SODIUM CHLORIDE 0.9% 250 ML IV ONE (16:30)
[2018-08-21 17:19] LABS: BASOPHILS % 0.5 % (0.0-2.0); EOSINOPHILS % 1.1 % (0.0-5.0); HEMATOCRIT. 32.7 % (36.0-48.0); HEMOGLOBIN. 10.3 g/dL (12.0-16.0); LYMPHOCYTES % 22.4 % (20.0-50.0); MEAN CORPUSCULAR HEMOGLOBIN 35.9 pg (28.0-32.0); MEAN CORPUSCULAR VOLUME 113.7 fL (81.0-99.0); MONOCYTES % 7.8 % (2.0-8.0); NEUTROPHILS % 68.2 % (40.0-76.0); PLATELET 184 x1000/uL (130-400); RED BLOOD CELL COUNT 2.88 mill/uL (4.2-5.4); RED CELL DISTRIBUTION WIDTH 20.1 % (11.6-14.6)
[2018-08-21 17:24] LABS: CHLORIDE 105 mEq/L (98-107); INR 1.4; PROTHROMBIN TIME 14.3 sec (9.1-11.1)
[2018-08-21 18:09] LABS: PLATELET ESTIMATE NORMAL
[2018-08-21] MEDS ORDERED: ONDANSETRON HCL 4MG/2ML INJ IV PRN (19:45)
[2018-08-21] MEDS ORDERED: MAGNESIUM/ALUMINUM HYDROXIDE/SIMETHICONE 30ML UDC PO PRN (19:45)
[2018-08-21] MEDS ORDERED: DEXTROSE 50% WATER 50ML SYRINGE IV PRN (19:45)
[2018-08-22 02:09] VITALS: BP 104/64
[2018-08-22 06:01] LABS: BASOPHILS % 0.6 % (0.0-2.0); EOSINOPHILS % 1.3 % (0.0-5.0); HEMATOCRIT. 33.3 % (36.0-48.0); HEMOGLOBIN. 10.6 g/dL (12.0-16.0); LYMPHOCYTES % 23.3 % (20.0-50.0); MEAN CORPUSCULAR HEMOGLOBIN 35.3 pg (28.0-32.0); MEAN CORPUSCULAR VOLUME 111.5 fL (81.0-99.0); MEAN PLATELET VOLUME 8.2 fl (7.4-10.4); MONOCYTES % 10.8 % (2.0-8.0); PLATELET 200 x1000/uL (130-400); RED BLOOD CELL COUNT 2.99 mill/uL (4.2-5.4); RED CELL DISTRIBUTION WIDTH 19.7 % (11.6-14.6)
[2018-08-22 08:00] VITALS: BP 112/51
[2018-08-22] MEDS: BLOOD SUGAR DIAGNOSTIC STRIP TEST SCH ×4 (08:02→20:51)
[2018-08-22] MEDS: GEMFIBROZIL 600MG TABLET PO SCH ×3 (08:11→18:20)
[2018-08-22] MEDS: INSULIN LISPRO 100 UNITS/ML SUBCUT SCH ×4 (08:14→20:51)
[2018-08-22] MEDS ORDERED: GABAPENTIN 100MG CAPSULE PO SCH (09:00)
[2018-08-22] MEDS ORDERED: SERTRALINE HCL 50MG TABLET PO SCH (09:00)
[2018-08-22] MEDS ORDERED: DONEPEZIL HCL 10MG TABLET PO SCH (09:00)
[2018-08-22 12:00] VITALS: BP 106/48
[2018-08-22] MEDS: SODIUM CHLORIDE 0.9% INJ 3ML FLUSH IVF SCH (15:00)
[2018-08-22] MEDS: ACETAMINOPHEN 325MG TABLET PO PRN (15:57)
[2018-08-22] MEDS: SODIUM CHLORIDE 0.9% 250 ML IV NR ×4 (17:47→20:30)
[2018-08-22 20:00] VITALS: BP 79/38
[2018-08-22 22:00] VITALS: BP 82/38
[2018-08-22] MEDS: MIDODRINE HCL 5MG TABLET PO SCH (22:18)
[2018-08-22] MEDS: FAMOTIDINE 20MG TABLET PO SCH (22:19)
[2018-08-23] VITALS (61 sets, daily range): BP systolic 74–182; BP diastolic 27–110
[2018-08-23] MEDS: SODIUM CHLORIDE 0.9% INJ 3ML FLUSH IVF SCH ×4 (00:17→22:22)
[2018-08-23] MEDS: BLOOD SUGAR DIAGNOSTIC STRIP TEST SCH ×4 (06:40→20:18)
[2018-08-23] MEDS: GEMFIBROZIL 600MG TABLET PO SCH ×2 (07:20→08:07)
[2018-08-23] MEDS: INSULIN LISPRO 100 UNITS/ML SUBCUT SCH ×4 (07:20→20:25)
[2018-08-23] MEDS: MIDODRINE HCL 5MG TABLET PO SCH ×4 (08:07→18:26)
[2018-08-23 08:53] LABS: HEMOGLOBIN. 9.8 g/dL (12.0-16.0); MEAN CORPUSCULAR HEMOGLOBIN 35.2 pg (28.0-32.0); MEAN CORPUSCULAR VOLUME 111.7 fL (81.0-99.0); MEAN PLATELET VOLUME 8.3 fl (7.4-10.4); PLATELET 186 x1000/uL (130-400); RED BLOOD CELL COUNT 2.78 mill/uL (4.2-5.4); RED CELL DISTRIBUTION WIDTH 19.9 % (11.6-14.6)
[2018-08-23] MEDS: DEXT 5%/0.9% NACL 1,000 ML IV SCH (09:31)
[2018-08-23] MEDS ORDERED: HETASTARCH/NORMAL SALINE 500 ML IV NR (10:00)
[2018-08-23] MEDS ORDERED: HETASTARCH/NORMAL SALINE 500 ML PLAST..BAG IV SCH (10:30)
[2018-08-23] MEDS ORDERED: VANCOMYCIN 1500MG in DEXTROSE 5% WATER 250ML IV SCH (11:00)
[2018-08-23] MEDS: PIPERACILLIN/TAZ 2.25G PREMIX 50 ML IV SCH ×2 (11:34→20:25)
[2018-08-23] MEDS ORDERED: NOREPINEPHRINE 16 MG in DEXT 5% WATER 234 ML IV PRN (13:45)
[2018-08-23] MEDS ORDERED: ATROPINE SULFATE 1MG/10ML SYR IV PRN (14:15)
[2018-08-23] MEDS: FAMOTIDINE 20MG TABLET PO SCH (20:25)
[2018-08-24] VITALS (96 sets, daily range): BP systolic 76–180; BP diastolic 26–136
[2018-08-24 05:36] LABS: BASOPHILS % 0.7 % (0.0-2.0); HEMATOCRIT. 28.2 % (36.0-48.0); HEMOGLOBIN. 8.9 g/dL (12.0-16.0); LYMPHOCYTES % 26.9 % (20.0-50.0); MEAN CORPUSCULAR HEMOGLOBIN 35.5 pg (28.0-32.0); MEAN CORPUSCULAR VOLUME 111.7 fL (81.0-99.0); MEAN PLATELET VOLUME 8.6 fl (7.4-10.4); MONOCYTES % 11.8 % (2.0-8.0); NEUTROPHILS % 57.6 % (40.0-76.0); PLATELET 192 x1000/uL (130-400); RED BLOOD CELL COUNT 2.52 mill/uL (4.2-5.4); RED CELL DISTRIBUTION WIDTH 19.8 % (11.6-14.6)
[2018-08-24] MEDS: BLOOD SUGAR DIAGNOSTIC STRIP TEST SCH ×4 (05:45→20:49)
[2018-08-24] MEDS: SODIUM CHLORIDE 0.9% INJ 3ML FLUSH IVF SCH ×3 (05:45→21:13)
[2018-08-24] MEDS: DEXT 5%/0.9% NACL 1,000 ML IV SCH (05:46)
[2018-08-24] MEDS: INSULIN LISPRO 100 UNITS/ML SUBCUT SCH ×4 (06:11→20:59)
[2018-08-24 07:38] LABS: PLATELET ESTIMATE NORMAL
[2018-08-24] MEDS ORDERED: LIDOCAINE HCL 1% 20ML VIAL (Pyxis) INJ ONE (07:59)
[2018-08-24] MEDS ORDERED: IPRATROPIUM/ALBUTEROL 0.5-3(2.5)MG/3ML NEB HHN PRN (09:30)
[2018-08-24] MEDS: MIDODRINE HCL 5MG TABLET PO SCH ×3 (09:34→17:43)
[2018-08-24] MEDS: PIPERACILLIN/TAZ 2.25G PREMIX 50 ML IV SCH ×2 (09:35→20:49)
[2018-08-24] MEDS ORDERED: DOPAMINE 800MG PREMIX 500 ML IV PRN (12:00)
[2018-08-24] MEDS ORDERED: DOPAMINE 400MG/250ML PREMIX 250 ML IV PRN (12:15)
[2018-08-24 12:41] LABS: D-DIMER 1.65 mg/L FEU (<0.50); INR 1.3; PARTIAL THROMBOPLASTIN TIME 32.7 sec (23.4-31.0); PROTHROMBIN TIME 13.1 sec (9.1-11.1)
[2018-08-24 14:09] LABS: HEPATITIS B SURFACE ANTIGEN NEGATIVE
[2018-08-24 14:38] LABS: HEPATITIS A AB IGM NEGATIVE (NEGATIVE)
[2018-08-24] MEDS: FAMOTIDINE 20MG TABLET PO SCH (20:49)
[2018-08-24] MEDS ORDERED: ZOLPIDEM TARTRATE 5MG TABLET PO NR (22:07)
[2018-08-25] VITALS (113 sets, daily range): BP systolic 73–192; BP diastolic 34–118
[2018-08-25] MEDS: DEXT 5%/0.9% NACL 1,000 ML IV SCH ×2 (02:13→20:38)
[2018-08-25] MEDS: SODIUM CHLORIDE 0.9% INJ 3ML FLUSH IVF SCH ×3 (05:07→21:59)
[2018-08-25 05:44] LABS: HEMATOCRIT. 29.5 % (36.0-48.0); HEMOGLOBIN. 9.3 g/dL (12.0-16.0); MEAN CORPUSCULAR HEMOGLOBIN 35.6 pg (28.0-32.0); MEAN CORPUSCULAR VOLUME 113.4 fL (81.0-99.0); PLATELET 179 x1000/uL (130-400); RED CELL DISTRIBUTION WIDTH 19.8 % (11.6-14.6)
[2018-08-25] MEDS: INSULIN LISPRO 100 UNITS/ML SUBCUT SCH ×4 (07:00→20:39)
[2018-08-25] MEDS: BLOOD SUGAR DIAGNOSTIC STRIP TEST SCH ×4 (07:03→20:38)
[2018-08-25] MEDS: PIPERACILLIN/TAZ 2.25G PREMIX 50 ML IV SCH ×2 (08:33→20:38)
[2018-08-25] MEDS: MIDODRINE HCL 5MG TABLET PO SCH ×3 (08:33→17:00)
[2018-08-25 10:45] LABS: NUCLEATED RED BLOOD CELLS 1 /100 WBC; PLATELET ESTIMATE NORMAL
[2018-08-25] MEDS ORDERED: LIDOCAINE HCL 1% 20ML VIAL (Pyxis) INJ ONE (11:30)
[2018-08-25] MEDS ORDERED: SODIUM BICARBONATE 4% (2.4MEQ) 5ML VIAL IV ONE (11:30)
[2018-08-25] MEDS: RISPERIDONE 0.25MG TABLET PO SCH (20:37)
[2018-08-25] MEDS: FAMOTIDINE 20MG TABLET PO SCH (20:37)
[2018-08-25] MEDS: IPRATROPIUM/ALBUTEROL 0.5-3(2.5)MG/3ML NEB HHN SCH (21:05)
[2018-08-25] MEDS ORDERED: ZOLPIDEM TARTRATE 5MG TABLET PO PRN (22:00)
[2018-08-26] VITALS (101 sets, daily range): BP systolic 62–192; BP diastolic 28–95
[2018-08-26] MEDS: DIPHENHYDRAMINE 50MG/ML VIAL IV PRN (00:07)
[2018-08-26] MEDS: IPRATROPIUM/ALBUTEROL 0.5-3(2.5)MG/3ML NEB HHN SCH ×4 (02:46→21:00)
[2018-08-26] MEDS: SODIUM CHLORIDE 0.9% INJ 3ML FLUSH IVF SCH ×3 (05:27→22:00)
[2018-08-26] MEDS: BLOOD SUGAR DIAGNOSTIC STRIP TEST SCH ×4 (05:51→21:00)
[2018-08-26] MEDS: INSULIN LISPRO 100 UNITS/ML SUBCUT SCH ×4 (05:51→21:00)
[2018-08-26 09:25] LABS: BG DEOXYHEMOGLOBIN 6.7 % (0.0-5.0); BG FRACTION INSPIRED OXYGEN 21; BG HCO3 ACT 20.5 mmol/L (22.0-26.0); BG METHEMOGLOBIN 0.3 % (0.0-1.5); BG OXYGEN SATURATION 93.2 % (92.0-98.5); BG PCO2 39.5 mmHg (35.0-45.0); BG PH 7.332 (7.350-7.450); BG PO2 65.7 mmHg (75.0-100.0); BG SAMPLE SITE RIGHT RADIAL; BG TOTAL HEMOGLOBIN 9.1 g/dL (12.0-18.0); BG VENT MODE ROOM AIR
[2018-08-26] MEDS: MIDODRINE HCL 5MG TABLET PO SCH ×3 (09:25→17:00)
[2018-08-26] MEDS: PIPERACILLIN/TAZ 2.25G PREMIX 50 ML IV SCH (09:25)
[2018-08-26] MEDS ORDERED: VANCOMYCIN 750 MG PREMIX 150 ML IV SCH (10:00)
[2018-08-26] MEDS: DEXT 5%/0.9% NACL 1,000 ML IV SCH (17:15)
[2018-08-26] MEDS: RISPERIDONE 0.25MG TABLET PO SCH (21:00)
[2018-08-26] MEDS: FAMOTIDINE 20MG TABLET PO SCH (21:00)
[2018-08-26 21:20] LABS: EOSINOPHILS % 2.6 % (0.0-5.0); HEMATOCRIT. 27.4 % (36.0-48.0); HEMOGLOBIN. 8.9 g/dL (12.0-16.0); LYMPHOCYTES % 26.2 % (20.0-50.0); MEAN CORPUSCULAR VOLUME 111.4 fL (81.0-99.0); MEAN PLATELET VOLUME 8.2 fl (7.4-10.4); MONOCYTES % 8.7 % (2.0-8.0); NEUTROPHILS % 61.5 % (40.0-76.0); PLATELET 193 x1000/uL (130-400); RED BLOOD CELL COUNT 2.46 mill/uL (4.2-5.4); RED CELL DISTRIBUTION WIDTH 19.2 % (11.6-14.6)
[2018-08-26 21:31] LABS: PHOSPHORUS 1.9 mg/dL (2.5-4.9)
[2018-08-27] VITALS (104 sets, daily range): BP systolic 50–166; BP diastolic 17–109
[2018-08-27] MEDS: IPRATROPIUM/ALBUTEROL 0.5-3(2.5)MG/3ML NEB HHN SCH ×3 (02:22→20:00)
[2018-08-27] MEDS: SODIUM CHLORIDE 0.9% INJ 3ML FLUSH IVF SCH ×3 (05:48→21:51)
[2018-08-27 06:56] LABS: PHOSPHORUS 2.2 mg/dL (2.5-4.9)
[2018-08-27] MEDS: MIDODRINE HCL 5MG TABLET PO SCH ×3 (08:33→18:40)
[2018-08-27] MEDS ORDERED: HEPARIN SODIUM 1,000 UNIT/1ML VIAL IV SCH (09:15)
[2018-08-27] MEDS: INSULIN LISPRO 100 UNITS/ML SUBCUT SCH ×3 (11:56→21:50)
[2018-08-27] MEDS: BLOOD SUGAR DIAGNOSTIC STRIP TEST SCH ×3 (11:57→21:05)
[2018-08-27] MEDS: NOREPINEPHRINE 16 MG in DEXT 5% WATER 234 ML IV PRN (16:34)
[2018-08-27] MEDS: ENOXAPARIN 80MG/0.8ML SYR SUBCUT SCH (16:39)
[2018-08-27] MEDS ORDERED: VANCOMYCIN 500 MG PREMIX 100 ML IV SCH (21:00)
[2018-08-27] MEDS: RISPERIDONE 0.25MG TABLET PO SCH (21:50)
[2018-08-27] MEDS: FAMOTIDINE 20MG TABLET PO SCH (21:51)
[2018-08-28] VITALS (93 sets, daily range): BP systolic 63–156; BP diastolic 20–91
[2018-08-28] MEDS: IPRATROPIUM/ALBUTEROL 0.5-3(2.5)MG/3ML NEB HHN SCH ×4 (02:03→22:07)
[2018-08-28] MEDS: BLOOD SUGAR DIAGNOSTIC STRIP TEST SCH ×4 (05:58→20:36)
[2018-08-28] MEDS: SODIUM CHLORIDE 0.9% INJ 3ML FLUSH IVF SCH ×3 (06:05→21:12)
[2018-08-28] MEDS: INSULIN LISPRO 100 UNITS/ML SUBCUT SCH ×4 (06:06→20:47)
[2018-08-28] MEDS: MIDODRINE HCL 5MG TABLET PO SCH ×3 (09:06→18:45)
[2018-08-28] MEDS: ENOXAPARIN 80MG/0.8ML SYR SUBCUT SCH (18:45)
[2018-08-28] MEDS: FAMOTIDINE 20MG TABLET PO SCH (20:46)
[2018-08-28] MEDS: RISPERIDONE 0.25MG TABLET PO SCH (20:46)
[2018-08-29] VITALS (99 sets, daily range): BP systolic 46–144; BP diastolic 17–80
[2018-08-29] MEDS: IPRATROPIUM/ALBUTEROL 0.5-3(2.5)MG/3ML NEB HHN SCH ×4 (01:29→20:41)
[2018-08-29] MEDS: SODIUM CHLORIDE 0.9% INJ 3ML FLUSH IVF SCH ×3 (05:49→22:00)
[2018-08-29] MEDS: BLOOD SUGAR DIAGNOSTIC STRIP TEST SCH ×4 (05:49→21:00)
[2018-08-29 06:06] LABS: BASOPHILS % 0.9 % (0.0-2.0); EOSINOPHILS % 2.6 % (0.0-5.0); HEMATOCRIT. 26.3 % (36.0-48.0); HEMOGLOBIN. 8.7 g/dL (12.0-16.0); LYMPHOCYTES % 27.1 % (20.0-50.0); MEAN CORPUSCULAR HEMOGLOBIN 36.3 pg (28.0-32.0); MEAN CORPUSCULAR VOLUME 109.2 fL (81.0-99.0); MEAN PLATELET VOLUME 8.7 fl (7.4-10.4); MONOCYTES % 8.9 % (2.0-8.0); NEUTROPHILS % 60.5 % (40.0-76.0); PLATELET 156 x1000/uL (130-400); RED BLOOD CELL COUNT 2.41 mill/uL (4.2-5.4)
[2018-08-29 06:21] LABS: PHOSPHORUS 1.9 mg/dL (2.5-4.9)
[2018-08-29] MEDS: INSULIN LISPRO 100 UNITS/ML SUBCUT SCH ×4 (06:27→21:40)
[2018-08-29] MEDS ORDERED: MAGNESIUM 2 G PREMIX 50 ML IV SCH (06:30)
[2018-08-29] MEDS ORDERED: SODIUM PHOS,M-BASIC-D-BASIC 15 MM in DEXT 5% WATER 245 ML IV ONE (07:00)
[2018-08-29] MEDS: MIDODRINE HCL 5MG TABLET PO SCH ×4 (09:00→16:39)
[2018-08-29] MEDS: NOREPINEPHRINE 16 MG in DEXT 5% WATER 234 ML IV PRN (10:16)
[2018-08-29] MEDS: ENOXAPARIN 80MG/0.8ML SYR SUBCUT SCH (16:28)
[2018-08-29] MEDS ORDERED: HEPARIN SODIUM 1,000 UNIT/1ML VIAL IV NR (18:15)
[2018-08-29] MEDS: FAMOTIDINE 20MG TABLET PO SCH (21:38)
[2018-08-29] MEDS: RISPERIDONE 0.25MG TABLET PO SCH (21:39)
[2018-08-30] VITALS (97 sets, daily range): BP systolic 39–179; BP diastolic 29–119
[2018-08-30] MEDS: IPRATROPIUM/ALBUTEROL 0.5-3(2.5)MG/3ML NEB HHN SCH ×4 (02:06→21:25)
[2018-08-30 05:56] LABS: BASOPHILS % 0.7 % (0.0-2.0); EOSINOPHILS % 1.5 % (0.0-5.0); HEMATOCRIT. 27.1 % (36.0-48.0); HEMOGLOBIN. 8.9 g/dL (12.0-16.0); LYMPHOCYTES % 19.5 % (20.0-50.0); MEAN CORPUSCULAR HEMOGLOBIN 35.6 pg (28.0-32.0); MEAN CORPUSCULAR VOLUME 108.9 fL (81.0-99.0); MEAN PLATELET VOLUME 9.2 fl (7.4-10.4); MONOCYTES % 9.5 % (2.0-8.0); NEUTROPHILS % 68.8 % (40.0-76.0); PLATELET 188 x1000/uL (130-400); RED BLOOD CELL COUNT 2.49 mill/uL (4.2-5.4); RED CELL DISTRIBUTION WIDTH 18.3 % (11.6-14.6)
[2018-08-30 06:11] LABS: PHOSPHORUS 1.5 mg/dL (2.5-4.9)
[2018-08-30] MEDS: SODIUM CHLORIDE 0.9% INJ 3ML FLUSH IVF SCH ×3 (06:47→21:32)
[2018-08-30] MEDS: BLOOD SUGAR DIAGNOSTIC STRIP TEST SCH ×4 (06:48→21:31)
[2018-08-30] MEDS ORDERED: POTASSIUM PHOS,M-BASIC-D-BASIC 20 MMOL in DEXT 5% WATER 243.3333 ML IV SCH (07:00)
[2018-08-30] MEDS: INSULIN LISPRO 100 UNITS/ML SUBCUT SCH ×4 (07:07→21:00)
[2018-08-30] MEDS: MIDODRINE HCL 5MG TABLET PO SCH ×3 (08:42→17:37)
[2018-08-30] MEDS: ENOXAPARIN 80MG/0.8ML SYR SUBCUT SCH (14:14)
[2018-08-30] MEDS: RISPERIDONE 0.25MG TABLET PO SCH (21:32)
[2018-08-30] MEDS: FAMOTIDINE 20MG TABLET PO SCH (21:32)
[2018-08-31] VITALS (86 sets, daily range): BP systolic 62–182; BP diastolic 19–163
[2018-08-31] MEDS: IPRATROPIUM/ALBUTEROL 0.5-3(2.5)MG/3ML NEB HHN SCH ×3 (02:11→21:27)
[2018-08-31 05:38] LABS: BASOPHILS % 1.4 % (0.0-2.0); HEMATOCRIT. 25.1 % (36.0-48.0); HEMOGLOBIN. 8.2 g/dL (12.0-16.0); LYMPHOCYTES % 35.3 % (20.0-50.0); MEAN CORPUSCULAR VOLUME 109.8 fL (81.0-99.0); MEAN PLATELET VOLUME 8.4 fl (7.4-10.4); NEUTROPHILS % 50.3 % (40.0-76.0); PLATELET 197 x1000/uL (130-400); RED BLOOD CELL COUNT 2.29 mill/uL (4.2-5.4); RED CELL DISTRIBUTION WIDTH 18.1 % (11.6-14.6)
[2018-08-31] MEDS: INSULIN LISPRO 100 UNITS/ML SUBCUT SCH ×4 (06:44→21:00)
[2018-08-31] MEDS: BLOOD SUGAR DIAGNOSTIC STRIP TEST SCH ×4 (06:45→21:52)
[2018-08-31] MEDS: SODIUM CHLORIDE 0.9% INJ 3ML FLUSH IVF SCH ×3 (06:45→21:52)
[2018-08-31] MEDS: MIDODRINE HCL 5MG TABLET PO SCH ×3 (09:24→18:08)
[2018-08-31] MEDS: ENOXAPARIN 80MG/0.8ML SYR SUBCUT SCH (15:34)
[2018-08-31] MEDS: FAMOTIDINE 20MG TABLET PO SCH (21:52)
[2018-08-31] MEDS: RISPERIDONE 0.25MG TABLET PO SCH (21:52)
[2018-08-31] MEDS: EPOETIN ALFA 4000UNITS/ML VIAL SUBCUT SCH (21:52)
[2018-09-01] VITALS (56 sets, daily range): BP systolic 63–206; BP diastolic 30–170
[2018-09-01] MEDS: ACETAMINOPHEN 325MG TABLET PO PRN ×2 (00:55→11:18)
[2018-09-01] MEDS: IPRATROPIUM/ALBUTEROL 0.5-3(2.5)MG/3ML NEB HHN SCH ×4 (02:30→20:24)
[2018-09-01 05:51] LABS: HEMATOCRIT. 27.3 % (36.0-48.0); HEMOGLOBIN. 8.6 g/dL (12.0-16.0); MEAN CORPUSCULAR HEMOGLOBIN 35.6 pg (28.0-32.0); MEAN CORPUSCULAR VOLUME 112.6 fL (81.0-99.0); MEAN PLATELET VOLUME 8.7 fl (7.4-10.4); PLATELET 194 x1000/uL (130-400); RED BLOOD CELL COUNT 2.43 mill/uL (4.2-5.4); RED CELL DISTRIBUTION WIDTH 18.1 % (11.6-14.6)
[2018-09-01 06:15] LABS: PHOSPHORUS 3.8 mg/dL (2.5-4.9)
[2018-09-01] MEDS: SODIUM CHLORIDE 0.9% INJ 3ML FLUSH IVF SCH ×2 (06:42→14:00)
[2018-09-01] MEDS: BLOOD SUGAR DIAGNOSTIC STRIP TEST SCH ×4 (06:45→21:08)
[2018-09-01] MEDS: INSULIN LISPRO 100 UNITS/ML SUBCUT SCH ×4 (06:49→21:08)
[2018-09-01] MEDS ORDERED: HEPARIN SODIUM 1,000 UNIT/1ML VIAL IV NR (09:15)
[2018-09-01 09:24] LABS: PLATELET ESTIMATE NORMAL
[2018-09-01] MEDS: MIDODRINE HCL 5MG TABLET PO SCH ×3 (11:18→17:46)
[2018-09-01] MEDS ORDERED: VANCOMYCIN 1,000 MG in DEXT 5% WATER 250 ML IV NR (14:00)
[2018-09-01] MEDS: ENOXAPARIN 80MG/0.8ML SYR SUBCUT SCH (16:59)
[2018-09-01] MEDS: RISPERIDONE 0.25MG TABLET PO SCH (21:07)
[2018-09-01] MEDS: FAMOTIDINE 20MG TABLET PO SCH (21:07)
[2018-09-02] VITALS (44 sets, daily range): BP systolic 70–170; BP diastolic 24–128
[2018-09-02] MEDS: IPRATROPIUM/ALBUTEROL 0.5-3(2.5)MG/3ML NEB HHN SCH ×4 (01:21→20:12)
[2018-09-02] MEDS: BLOOD SUGAR DIAGNOSTIC STRIP TEST SCH ×4 (06:30→20:41)
[2018-09-02] MEDS: INSULIN LISPRO 100 UNITS/ML SUBCUT SCH ×4 (07:00→20:41)
[2018-09-02] MEDS: MIDODRINE HCL 5MG TABLET PO SCH ×3 (09:33→17:00)
[2018-09-02] MEDS: LACTULOSE 20G/30ML UDC PO SCH ×3 (14:00→22:00)
[2018-09-02] MEDS: SODIUM CHLORIDE 0.9% INJ 3ML FLUSH IVF SCH ×2 (14:00→20:42)
[2018-09-02] MEDS: ENOXAPARIN 80MG/0.8ML SYR SUBCUT SCH (16:02)
[2018-09-02] MEDS: EPOETIN ALFA 4000UNITS/ML VIAL SUBCUT SCH (20:40)
[2018-09-02] MEDS: FAMOTIDINE 20MG TABLET PO SCH (20:41)
[2018-09-02] MEDS: RISPERIDONE 0.25MG TABLET PO SCH (20:41)
[2018-09-02] MEDS: DIPHENHYDRAMINE 50MG/ML VIAL IV PRN (23:35)
[2018-09-03] VITALS (39 sets, daily range): BP systolic 52–162; BP diastolic 23–131
[2018-09-03] MEDS: IPRATROPIUM/ALBUTEROL 0.5-3(2.5)MG/3ML NEB HHN SCH ×4 (01:59→20:18)
[2018-09-03 05:40] LABS: PHOSPHORUS 3.3 mg/dL (2.5-4.9)
[2018-09-03 05:48] LABS: BASOPHILS % 0.2 % (0.0-2.0); EOSINOPHILS % 0.4 % (0.0-5.0); HEMATOCRIT. 26.1 % (36.0-48.0); HEMOGLOBIN. 8.4 g/dL (12.0-16.0); LYMPHOCYTES % 12.6 % (20.0-50.0); MEAN CORPUSCULAR HEMOGLOBIN 35.6 pg (28.0-32.0); MEAN CORPUSCULAR VOLUME 110.8 fL (81.0-99.0); MEAN PLATELET VOLUME 8.9 fl (7.4-10.4); MONOCYTES % 6.6 % (2.0-8.0); NEUTROPHILS % 80.2 % (40.0-76.0); PLATELET 224 x1000/uL (130-400); RED BLOOD CELL COUNT 2.35 mill/uL (4.2-5.4); RED CELL DISTRIBUTION WIDTH 18.2 % (11.6-14.6)
[2018-09-03] MEDS: LACTULOSE 20G/30ML UDC PO SCH ×2 (06:00→10:00)
[2018-09-03] MEDS: INSULIN LISPRO 100 UNITS/ML SUBCUT SCH ×4 (07:00→20:48)
[2018-09-03] MEDS: BLOOD SUGAR DIAGNOSTIC STRIP TEST SCH ×4 (07:18→20:48)
[2018-09-03] MEDS: SODIUM CHLORIDE 0.9% INJ 3ML FLUSH IVF SCH ×3 (07:52→22:00)
[2018-09-03] MEDS: MIDODRINE HCL 5MG TABLET PO SCH ×3 (09:00→17:47)
[2018-09-03] MEDS ORDERED: POTASSIUM CHLORIDE 20MEQ TABLET SR PO SCH (10:00)
[2018-09-03] MEDS ORDERED: HEPARIN SODIUM 1,000 UNIT/1ML VIAL IV SCH (10:00)
[2018-09-03] MEDS: NOREPINEPHRINE 16 MG in DEXT 5% WATER 234 ML IV PRN (10:09)
[2018-09-03] MEDS ORDERED: HEPARIN SODIUM 1,000 UNIT/1ML VIAL IV NR (11:45)
[2018-09-03] MEDS: ENOXAPARIN 80MG/0.8ML SYR SUBCUT SCH (15:02)
[2018-09-03] MEDS: FAMOTIDINE 20MG TABLET PO SCH (20:41)
[2018-09-03] MEDS: RISPERIDONE 0.25MG TABLET PO SCH (20:41)
[2018-09-04] VITALS (8 sets, daily range): BP systolic 90–126; BP diastolic 34–82
[2018-09-04] MEDS: IPRATROPIUM/ALBUTEROL 0.5-3(2.5)MG/3ML NEB HHN SCH ×4 (02:18→21:00)
[2018-09-04] MEDS: BLOOD SUGAR DIAGNOSTIC STRIP TEST SCH ×4 (06:20→21:00)
[2018-09-04] MEDS: SODIUM CHLORIDE 0.9% INJ 3ML FLUSH IVF SCH ×3 (06:28→21:38)
[2018-09-04] MEDS: INSULIN LISPRO 100 UNITS/ML SUBCUT SCH ×4 (06:28→21:34)
[2018-09-04 07:08] LABS: HEMOGLOBIN. 8.5 g/dL (12.0-16.0); MEAN CORPUSCULAR HEMOGLOBIN 36.1 pg (28.0-32.0); PLATELET 227 x1000/uL (130-400); RED BLOOD CELL COUNT 2.36 mill/uL (4.2-5.4); RED CELL DISTRIBUTION WIDTH 17.6 % (11.6-14.6)
[2018-09-04] MEDS: MIDODRINE HCL 5MG TABLET PO SCH ×5 (08:42→17:00)
[2018-09-04] MEDS: LACTULOSE 20G/30ML UDC PO SCH ×2 (08:42→09:00)
[2018-09-04] MEDS ORDERED: PANTOPRAZOLE SODIUM 40 MG/VIAL IV SCH (10:15)
[2018-09-04 13:47] LABS: PLATELET ESTIMATE NORMAL
[2018-09-04 15:25] LABS: TOTAL IRON BINDING CAPACITY 167 ug/dL (250-450)
[2018-09-04] MEDS: DEXT 5%/0.45% NACL 1000ML 1,000 ML IV SCH (17:23)
[2018-09-04] MEDS: PANTOPRAZOLE SODIUM 40 MG/VIAL IV SCH (18:03)
[2018-09-04] MEDS: RISPERIDONE 0.25MG TABLET PO SCH (21:00)
[2018-09-04] MEDS: EPOETIN ALFA 4000UNITS/ML VIAL SUBCUT SCH (21:38)
[2018-09-05] MEDS: IPRATROPIUM/ALBUTEROL 0.5-3(2.5)MG/3ML NEB HHN SCH ×4 (02:15→21:39)
[2018-09-05 04:00] VITALS: BP 102/57
[2018-09-05] MEDS: SODIUM CHLORIDE 0.9% INJ 3ML FLUSH IVF SCH ×3 (05:39→21:26)
[2018-09-05] MEDS: BLOOD SUGAR DIAGNOSTIC STRIP TEST SCH ×4 (05:39→21:08)
[2018-09-05] MEDS: INSULIN LISPRO 100 UNITS/ML SUBCUT SCH ×4 (06:04→21:08)
[2018-09-05 08:00] VITALS: BP 103/40
[2018-09-05] MEDS: LACTULOSE 20G/30ML UDC PO SCH (08:10)
[2018-09-05] MEDS: PANTOPRAZOLE SODIUM 40 MG/VIAL IV SCH ×2 (08:10→17:47)
[2018-09-05] MEDS: MIDODRINE HCL 5MG TABLET PO SCH ×3 (08:11→17:00)
[2018-09-05 09:40] LABS: BASOPHILS % 0.1 % (0.0-2.0); EOSINOPHILS % 0.9 % (0.0-5.0); HEMATOCRIT. 24.2 % (36.0-48.0); HEMOGLOBIN. 7.7 g/dL (12.0-16.0); LYMPHOCYTES % 15.1 % (20.0-50.0); MEAN CORPUSCULAR HEMOGLOBIN 35.6 pg (28.0-32.0); MEAN CORPUSCULAR VOLUME 111.8 fL (81.0-99.0); MEAN PLATELET VOLUME 8.5 fl (7.4-10.4); MONOCYTES % 5.8 % (2.0-8.0); NEUTROPHILS % 78.1 % (40.0-76.0); PLATELET 227 x1000/uL (130-400); RED BLOOD CELL COUNT 2.17 mill/uL (4.2-5.4); RED CELL DISTRIBUTION WIDTH 17.3 % (11.6-14.6)
[2018-09-05] MEDS: DEXT 5%/0.45% NACL 1000ML 1,000 ML IV SCH (11:52)
[2018-09-05 12:00] VITALS: BP 104/64
[2018-09-05 16:00] VITALS: BP 106/52
[2018-09-05 19:29] LABS: HEMATOCRIT 26.5 % (36.0-48.0); HEMOGLOBIN 8.5 g/dL (12.0-16.0)
[2018-09-05 20:00] VITALS: BP 108/59
[2018-09-05] MEDS: RISPERIDONE 0.25MG TABLET PO SCH (21:38)
[2018-09-06] VITALS (8 sets, daily range): BP systolic 87–139; BP diastolic 39–59
[2018-09-06] MEDS: IPRATROPIUM/ALBUTEROL 0.5-3(2.5)MG/3ML NEB HHN SCH ×2 (02:00→21:24)
[2018-09-06] MEDS: METRONIDAZOLE 500 MG PREMIX 100 ML IV SCH ×3 (06:04→21:21)
[2018-09-06] MEDS: SODIUM CHLORIDE 0.9% INJ 3ML FLUSH IVF SCH ×3 (06:08→21:21)
[2018-09-06] MEDS: BLOOD SUGAR DIAGNOSTIC STRIP TEST SCH ×4 (06:18→21:14)
[2018-09-06] MEDS: INSULIN LISPRO 100 UNITS/ML SUBCUT SCH ×4 (06:24→21:32)
[2018-09-06 09:53] LABS: BASOPHILS % 0.2 % (0.0-2.0); EOSINOPHILS % 0.5 % (0.0-5.0); HEMATOCRIT. 23.9 % (36.0-48.0); HEMOGLOBIN. 7.7 g/dL (12.0-16.0); LYMPHOCYTES % 14.1 % (20.0-50.0); MEAN CORPUSCULAR HEMOGLOBIN 36.5 pg (28.0-32.0); MEAN CORPUSCULAR VOLUME 113.7 fL (81.0-99.0); MEAN PLATELET VOLUME 9.3 fl (7.4-10.4); MONOCYTES % 5.2 % (2.0-8.0); PLATELET 205 x1000/uL (130-400); RED CELL DISTRIBUTION WIDTH 17.4 % (11.6-14.6)
[2018-09-06] MEDS: LACTULOSE 20G/30ML UDC PO SCH (10:24)
[2018-09-06] MEDS: PANTOPRAZOLE SODIUM 40 MG/VIAL IV SCH ×2 (10:24→18:24)
[2018-09-06] MEDS: MIDODRINE HCL 5MG TABLET PO SCH ×3 (10:46→18:34)
[2018-09-06] MEDS ORDERED: POTASSIUM CHLORIDE 20MEQ TABLET SR PO NR (13:30)
[2018-09-06] MEDS: DEXT 5%/0.45% NACL 1000ML 1,000 ML IV SCH (17:23)
[2018-09-06] MEDS: SUCRALFATE 1G TABLET PO SCH ×2 (18:25→21:36)
[2018-09-06] MEDS: RISPERIDONE 0.25MG TABLET PO SCH (21:36)
[2018-09-07] VITALS: BP 96/50
[2018-09-07] MEDS: IPRATROPIUM/ALBUTEROL 0.5-3(2.5)MG/3ML NEB HHN SCH ×3 (01:48→21:00)
[2018-09-07] MEDS: METRONIDAZOLE 500 MG PREMIX 100 ML IV SCH ×3 (02:52→18:05)
[2018-09-07 04:00] VITALS: BP 101/51
[2018-09-07] MEDS: BLOOD SUGAR DIAGNOSTIC STRIP TEST SCH ×4 (05:40→20:40)
[2018-09-07] MEDS: SODIUM CHLORIDE 0.9% INJ 3ML FLUSH IVF SCH ×3 (06:35→22:00)
[2018-09-07] MEDS: SUCRALFATE 1G TABLET PO SCH ×4 (06:39→21:18)
[2018-09-07] MEDS: INSULIN LISPRO 100 UNITS/ML SUBCUT SCH ×4 (06:40→21:22)
[2018-09-07 08:00] VITALS: BP 118/44
[2018-09-07] MEDS: PANTOPRAZOLE SODIUM 40 MG/VIAL IV SCH ×2 (08:53→17:03)
[2018-09-07] MEDS: LACTULOSE 20G/30ML UDC PO SCH (08:57)
[2018-09-07] MEDS: MIDODRINE HCL 5MG TABLET PO SCH ×3 (08:57→17:00)
[2018-09-07] MEDS: ACETAMINOPHEN 325MG TABLET PO PRN ×2 (10:32→11:28)
[2018-09-07 12:00] VITALS: BP 118/51
[2018-09-07 13:03] LABS: BASOPHILS % 0.7 % (0.0-2.0); EOSINOPHILS % 1.9 % (0.0-5.0); HEMATOCRIT. 25.7 % (36.0-48.0); HEMOGLOBIN. 8.2 g/dL (12.0-16.0); LYMPHOCYTES % 14.2 % (20.0-50.0); MEAN CORPUSCULAR HEMOGLOBIN 36.1 pg (28.0-32.0); MEAN CORPUSCULAR VOLUME 113.5 fL (81.0-99.0); MEAN PLATELET VOLUME 8.6 fl (7.4-10.4); MONOCYTES % 6.1 % (2.0-8.0); NEUTROPHILS % 77.1 % (40.0-76.0); PLATELET 237 x1000/uL (130-400); RED BLOOD CELL COUNT 2.27 mill/uL (4.2-5.4); RED CELL DISTRIBUTION WIDTH 17.8 % (11.6-14.6)
[2018-09-07 16:00] VITALS: BP 90/47
[2018-09-07] MEDS ORDERED: POTASSIUM CHLORIDE INJ 40 MEQ in DEXT 5% WATER 250 ML IV NR (17:00)
[2018-09-07 20:00] VITALS: BP 134/88
[2018-09-07] MEDS: RISPERIDONE 0.25MG TABLET PO SCH (21:18)
[2018-09-08] VITALS: BP 109/51
[2018-09-08] MEDS: IPRATROPIUM/ALBUTEROL 0.5-3(2.5)MG/3ML NEB HHN SCH ×4 (01:25→20:47)
[2018-09-08] MEDS: METRONIDAZOLE 500 MG PREMIX 100 ML IV SCH ×3 (02:08→17:20)
[2018-09-08 04:00] VITALS: BP 91/48
[2018-09-08] MEDS: SODIUM CHLORIDE 0.9% INJ 3ML FLUSH IVF SCH ×3 (06:00→21:11)
[2018-09-08] MEDS: BLOOD SUGAR DIAGNOSTIC STRIP TEST SCH ×4 (06:15→19:49)
[2018-09-08] MEDS: SUCRALFATE 1G TABLET PO SCH ×4 (06:40→21:02)
[2018-09-08] MEDS: INSULIN LISPRO 100 UNITS/ML SUBCUT SCH ×4 (06:42→21:11)
[2018-09-08 08:00] VITALS: BP 123/40
[2018-09-08] MEDS: PANTOPRAZOLE SODIUM 40 MG/VIAL IV SCH ×2 (08:50→16:29)
[2018-09-08] MEDS: MIDODRINE HCL 5MG TABLET PO SCH ×3 (08:51→16:29)
[2018-09-08] MEDS: DEXT 5%/0.45% NACL 1000ML 1,000 ML IV SCH ×2 (09:02→10:24)
[2018-09-08 12:00] VITALS: BP 91/47
[2018-09-08 17:49] VITALS: BP 93/48
[2018-09-08 20:00] VITALS: BP 93/46
[2018-09-08] MEDS ORDERED: EPOETIN ALFA 10000UNITS/ML VIAL SUBCUT NR (21:00)
[2018-09-08] MEDS: RISPERIDONE 0.25MG TABLET PO SCH (21:02)
[2018-09-09] VITALS (8 sets, daily range): BP systolic 74–110; BP diastolic 27–65
[2018-09-09] MEDS: IPRATROPIUM/ALBUTEROL 0.5-3(2.5)MG/3ML NEB HHN SCH ×2 (01:07→09:08)
[2018-09-09] MEDS: METRONIDAZOLE 500 MG PREMIX 100 ML IV SCH ×3 (01:57→18:00)
[2018-09-09] MEDS: SODIUM CHLORIDE 0.9% INJ 3ML FLUSH IVF SCH ×3 (06:00→21:52)
[2018-09-09] MEDS: BLOOD SUGAR DIAGNOSTIC STRIP TEST SCH ×4 (06:30→21:37)
[2018-09-09] MEDS: SUCRALFATE 1G TABLET PO SCH ×4 (06:31→21:28)
[2018-09-09] MEDS: INSULIN LISPRO 100 UNITS/ML SUBCUT SCH ×4 (06:33→21:00)
[2018-09-09] MEDS: MIDODRINE HCL 5MG TABLET PO SCH ×3 (07:48→16:42)
[2018-09-09] MEDS: PANTOPRAZOLE SODIUM 40 MG/VIAL IV SCH ×2 (08:32→16:42)
[2018-09-09] MEDS ORDERED: SODIUM BICARBONATE 4% (2.4MEQ) 5ML VIAL IV ONE (08:57)
[2018-09-09] MEDS ORDERED: LIDOCAINE HCL 1% 20ML VIAL (Pyxis) INJ ONE (08:57)
[2018-09-09] MEDS ORDERED: SODIUM CHLORIDE 0.9% 250 ML IV ONE (09:00)
[2018-09-09] MEDS ORDERED: ALBUMIN HUMAN 12.5GM/50ML (25%) IV NR (12:00)
[2018-09-09] MEDS ORDERED: ALBUMIN HUMAN 12.5GM/50ML (25%) IV PRN (13:00)
[2018-09-09] MEDS: RISPERIDONE 0.25MG TABLET PO SCH (21:33)
[2018-09-10] VITALS: BP 100/86
[2018-09-10] MEDS: METRONIDAZOLE 500 MG PREMIX 100 ML IV SCH ×3 (02:57→22:14)
[2018-09-10 04:00] VITALS: BP 129/61
[2018-09-10] MEDS: BLOOD SUGAR DIAGNOSTIC STRIP TEST SCH ×4 (06:44→21:23)
[2018-09-10] MEDS: SUCRALFATE 1G TABLET PO SCH ×4 (06:44→22:13)
[2018-09-10] MEDS: INSULIN LISPRO 100 UNITS/ML SUBCUT SCH ×4 (06:44→22:49)
[2018-09-10 08:00] VITALS: BP 115/53
[2018-09-10] MEDS: MIDODRINE HCL 5MG TABLET PO SCH ×3 (09:00→17:32)
[2018-09-10] MEDS ORDERED: SODIUM BICARBONATE 4% (2.4MEQ) 5ML VIAL IV ONE (09:04)
[2018-09-10] MEDS ORDERED: LIDOCAINE HCL 1% 20ML VIAL (Pyxis) INJ ONE (09:04)
[2018-09-10] MEDS ORDERED: MIDAZOLAM HCL 2 MG/2 ML VIAL ONE (10:51)
[2018-09-10] MEDS ORDERED: FENTANYL CITRATE/PF 50MCG/ML 2ML VIAL ONE (10:51)
[2018-09-10] MEDS ORDERED: PROPOFOL 200MG/20ML VIAL IV ONE (10:51)
[2018-09-10] MEDS ORDERED: PHENYLEPHRINE HCL 10 MG/ML 1ML (IV VIAL) IV ONE ×2 (11:00→11:21)
[2018-09-10] MEDS ORDERED: FENTANYL CITRATE/PF 50MCG/ML 2ML VIAL IV PRN (11:30)
[2018-09-10] MEDS ORDERED: MEPERIDINE HCL/PF 25MG/ML CPJ IV PRN (11:30)
[2018-09-10] MEDS ORDERED: HYDROMORPHONE HCL/PF 2MG/ML CPJ IV PRN (11:30)
[2018-09-10] MEDS ORDERED: MORPHINE SULFATE 4 MG/ML CPJ (NOT FOR IM USE) IV PRN (11:30)
[2018-09-10] MEDS ORDERED: ONDANSETRON HCL 4MG/2ML INJ IV PRN (11:30)
[2018-09-10] MEDS: PANTOPRAZOLE SODIUM 40 MG/VIAL IV SCH ×2 (13:33→17:21)
[2018-09-10] MEDS: SODIUM CHLORIDE 0.9% INJ 3ML FLUSH IVF SCH ×2 (14:00→22:38)
[2018-09-10 16:00] VITALS: BP 86/36
[2018-09-10 20:00] VITALS: BP 115/51
[2018-09-10] MEDS: RISPERIDONE 0.25MG TABLET PO SCH (22:13)
[2018-09-11] VITALS: BP 100/52
[2018-09-11 04:00] VITALS: BP 99/57
[2018-09-11] MEDS: SODIUM CHLORIDE 0.9% INJ 3ML FLUSH IVF SCH (06:05)
[2018-09-11] MEDS: METRONIDAZOLE 500 MG PREMIX 100 ML IV SCH (06:05)
[2018-09-11] MEDS: BLOOD SUGAR DIAGNOSTIC STRIP TEST SCH (06:19)
[2018-09-11] MEDS: SUCRALFATE 1G TABLET PO SCH (06:19)
[2018-09-11] MEDS: INSULIN LISPRO 100 UNITS/ML SUBCUT SCH (06:20)
[2018-09-11 08:00] VITALS: BP 98/65
[2018-09-11] MEDS: PANTOPRAZOLE SODIUM 40 MG/VIAL IV SCH (09:48)
[2018-09-11] MEDS: MIDODRINE HCL 5MG TABLET PO SCH (09:56)
[2018-09-11 12:46] VITALS: BP 106/45
== END 2018-09-11 14:23 | DRG 314 ==
LOC: ER 15:58 → EDBEDREQ 16:29 → 8WST 19:18 → EDBEDREQ 19:24 → EDBEDREQSVC 19:24 → ENRESERV 22:45 → 3WST 08-22 23:17 → MICUNO 08-23 10:00 → 8WST 09-03 22:25
PROVIDERS: ADMIT Internal Medicine; ATTEND Internal Medicine
PROC: 3E1M39Z Irrigation of Peritoneal Cavity using Dialysate, Percutaneous Approach (ICD-10-PCS; 2018-08-22)
PROC: 06HY33Z Insertion of Infusion Device into Lower Vein, Percutaneous Approach (ICD-10-PCS; principal; 2018-08-24)
PROC: B54BZZA Ultrasonography of Right Lower Extremity Veins, Guidance (ICD-10-PCS; 2018-08-24)
PROC: 0JPV3XZ Removal of Tunneled Vascular Access Device from Upper Extremity Subcutaneous Tissue and Fascia, Percutaneous Approach (ICD-10-PCS; 2018-08-25)
PROC: 06HY33Z Insertion of Infusion Device into Lower Vein, Percutaneous Approach (ICD-10-PCS; 2018-08-25)
PROC: B54BZZA Ultrasonography of Right Lower Extremity Veins, Guidance (ICD-10-PCS; 2018-08-25)
PROC: 3E1M39Z Irrigation of Peritoneal Cavity using Dialysate, Percutaneous Approach (ICD-10-PCS; 2018-08-25)
PROC: 3E1M39Z Irrigation of Peritoneal Cavity using Dialysate, Percutaneous Approach (ICD-10-PCS; 2018-08-26)
PROC: 3E1M39Z Irrigation of Peritoneal Cavity using Dialysate, Percutaneous Approach (ICD-10-PCS; 2018-08-29)
PROC: 3E1M39Z Irrigation of Peritoneal Cavity using Dialysate, Percutaneous Approach (ICD-10-PCS; 2018-08-31)
PROC: 3E1M39Z Irrigation of Peritoneal Cavity using Dialysate, Percutaneous Approach (ICD-10-PCS; 2018-09-02)
PROC: 3E1M39Z Irrigation of Peritoneal Cavity using Dialysate, Percutaneous Approach (ICD-10-PCS; 2018-09-04)
PROC: 3E1M39Z Irrigation of Peritoneal Cavity using Dialysate, Percutaneous Approach (ICD-10-PCS; 2018-09-07)
PROC: 0JH63XZ Insertion of Tunneled Vascular Access Device into Chest Subcutaneous Tissue and Fascia, Percutaneous Approach (ICD-10-PCS; 2018-09-10)
PROC: 02HV33Z Insertion of Infusion Device into Superior Vena Cava, Percutaneous Approach (ICD-10-PCS; 2018-09-10)
PROC: B5181ZA Fluoroscopy of Superior Vena Cava using Low Osmolar Contrast, Guidance (ICD-10-PCS; 2018-09-10)
PROC: 3E1M39Z Irrigation of Peritoneal Cavity using Dialysate, Percutaneous Approach (ICD-10-PCS; 2018-09-10)
DX: T80.211A Bloodstream infection due to central venous catheter, initial encounter (principal); N18.6 End stage renal disease; R65.21 Severe sepsis with septic shock; J96.00 Acute respiratory failure, unspecified whether with hypoxia or hypercapnia; G93.41 Metabolic encephalopathy; E43 Unspecified severe protein-calorie malnutrition; A41.1 Sepsis due to other specified staphylococcus; D68.9 Coagulation defect, unspecified; I12.0 Hypertensive chronic kidney disease with stage 5 chronic kidney disease or end stage renal disease; I82.621 Acute embolism and thrombosis of deep veins of right upper extremity; I82.B11 Acute embolism and thrombosis of right subclavian vein; K92.0 Hematemesis; R17 Unspecified jaundice; G90.8 Other disorders of autonomic nervous system; E11.22 Type 2 diabetes mellitus with diabetic chronic kidney disease; F41.9 Anxiety disorder, unspecified; R41.89 Other symptoms and signs involving cognitive functions and awareness; R00.1 Bradycardia, unspecified; K29.70 Gastritis, unspecified, without bleeding; E87.6 Hypokalemia; Y84.1 Kidney dialysis as the cause of abnormal reaction of the patient, or of later complication, without mention of misadventure at the time of the procedure; F03.90 Unspecified dementia, unspecified severity, without behavioral disturbance, psychotic disturbance, mood disturbance, and anxiety; Z99.2 Dependence on renal dialysis; B96.89 Other specified bacterial agents as the cause of diseases classified elsewhere; D50.9 Iron deficiency anemia, unspecified; E66.01 Morbid (severe) obesity due to excess calories; F32.9 Major depressive disorder, single episode, unspecified; I07.1 Rheumatic tricuspid insufficiency; I27.20 Pulmonary hypertension, unspecified; Z78.1 Physical restraint status; Z91.19 Patient's noncompliance with other medical treatment and regimen; Y92.89 Other specified places as the place of occurrence of the external cause; Z68.35 Body mass index [BMI] 35.0-35.9, adult
CPT/HCPCS: 36415; 36556; 36558; 36569; 36589; 36600; 71045; 76937; 77001; 80048; 80051; 80076; 80202; 82140; 82270; 82375; 82728; 82805; 82962; 83036; 83540; 83550; 83605; 83735; 84100; 84134; 84145; 84443; 84484; 85007; 85014; 85018; 85027; 85379; 85384; 86705; 86709; 86803; 86850; 86900; 86920; 87070; 87077; 87186; 87340; 92610; 93005; 93306; 93970; 93971; 94640; 96374; 96375; 97161; 99285; A6261; C1750; C1752; C1769; C1893; C9113; J0885; J1200; J1265; J1642; J1644; J1650; J1815; J2250; J2370; J2405; J2543; J2704; J3010; J3370; J3475; J3480; J3490; J7040; J7042; J7050; J7060; J7070; J7620; P9047

== ENCOUNTER 2018-09-15 06:45 | Inpatient (IN) | payer MEDICARE, MEDICAID ==
[2018-09-15] VITALS (28 sets, daily range): BP systolic 55–133; BP diastolic 19–109
[~2018-09-15] VITALS: Ht 152.4 cm; Wt 83.1 kg
[2018-09-15] MEDS ORDERED: ETOMIDATE 2MG/ML 10ML VIAL IV ONE (07:10)
[2018-09-15] MEDS ORDERED: SODIUM CHLORIDE 0.9% 10ML VIAL ONE (07:10)
[2018-09-15] MEDS ORDERED: VECURONIUM BROMIDE 10 MG/VIAL IV ONE (07:10)
[2018-09-15] MEDS ORDERED: SODIUM CHLORIDE 0.9% 1,000 ML IV ONE (07:18)
[2018-09-15] MEDS ORDERED: NOREPINEPHRINE 4 MG in DEXT 5% WATER 246 ML IV ONE (07:30)
[2018-09-15] MEDS ORDERED: NOREPINEPHRINE 4MG/250ML PMX 250 ML IV ONE (07:42)
[2018-09-15 07:45] LABS: HEMATOCRIT. 27.8 % (36.0-48.0); HEMOGLOBIN. 8.5 g/dL (12.0-16.0); MEAN CORPUSCULAR HEMOGLOBIN 35.7 pg (28.0-32.0); MEAN CORPUSCULAR VOLUME 116.3 fL (81.0-99.0); MEAN PLATELET VOLUME 8.9 fl (7.4-10.4); PLATELET 178 x1000/uL (130-400); RED BLOOD CELL COUNT 2.39 mill/uL (4.2-5.4); RED CELL DISTRIBUTION WIDTH 19.5 % (11.6-14.6)
[2018-09-15 07:51] LABS: CHLORIDE 107 mEq/L (98-107)
[2018-09-15 07:57] LABS: PROTHROMBIN TIME 50.5 sec (9.6-11.0)
[2018-09-15 08:10] LABS: INR 5.3
[2018-09-15 08:12] LABS: NUCLEATED RED BLOOD CELLS 1 /100 WBC; PLATELET ESTIMATE NORMAL
[2018-09-15 08:41] LABS: CLARITY URINE TURBID (CLEAR); KETONES URINE TRACE (NEGATIVE); LEUKOCYTE ESTERASE URINE 3+ (NEGATIVE); NITRITE URINE POSITIVE (NEGATIVE); OCCULT BLOOD URINE 2+ (NEGATIVE); PROTEIN URINE 3+ (NEGATIVE); SPECIFIC GRAVITY URINE 1.018 (1.005-1.030)
[2018-09-15 08:42] LABS: COLOR URINE AMBER (YELLOW)
[2018-09-15 08:51] LABS: BG BASE EXCESS -15.2 mmol/L (-2.0-2.0); BG CARBOXYHEMOGLOBIN 0.3 % (0.5-1.5); BG DEOXYHEMOGLOBIN 0.5 % (0.0-5.0); BG HCO3 ACT 9.8 mmol/L (22.0-26.0); BG METHEMOGLOBIN 0.4 % (0.0-1.5); BG OXYGEN SATURATION 99.5 % (92.0-98.5); BG OXYHEMOGLOBIN 98.8 % (94.0-97.0); BG PCO2 21.1 mmHg (35.0-45.0); BG PH 7.284 (7.350-7.450); BG PO2 309.2 mmHg (75.0-100.0); BG SAMPLE SITE RIGHT RADIAL; BG TIDAL VOLUME(mL) 500 mL; BG TOTAL HEMOGLOBIN 8.8 g/dL (12.0-18.0); BG VENT MODE VENT - A/C; BG VENT RATE 18 set
[2018-09-15] MEDS ORDERED: GENTAMICIN 80MG PREMIX 100 ML IV ONE (09:00)
[2018-09-15] MEDS ORDERED: VANCOMYCIN 1 G PREMIX 200 ML IV SCH (09:00)
[2018-09-15] MEDS ORDERED: GENTAMICIN 80MG PREMIX 100 ML IV NR (09:30)
[2018-09-15] MEDS ORDERED: PHENYLEPHRINE 10 MG in DEXT 5% WATER 249 ML IV PRN ×4 (12:00)
[2018-09-15] MEDS ORDERED: SODIUM BICARBONATE 8.4% 1 MEQ/ML 50ML SYR IV NR ×2 (14:30)
[2018-09-15] MEDS ORDERED: PHENYLEPHRINE 20 MG in DEXT 5% WATER 248 ML IV PRN ×2 (14:30→15:00)
[2018-09-15 14:52] LABS: BG BASE EXCESS -10.6 mmol/L (-2.0-2.0); BG CARBOXYHEMOGLOBIN 0.3 % (0.5-1.5); BG DEOXYHEMOGLOBIN 2.4 % (0.0-5.0); BG FRACTION INSPIRED OXYGEN 50; BG HCO3 ACT 12.4 mmol/L (22.0-26.0); BG METHEMOGLOBIN 0.2 % (0.0-1.5); BG OXYGEN SATURATION 97.6 % (92.0-98.5); BG OXYHEMOGLOBIN 97.1 % (94.0-97.0); BG PCO2 19.7 mmHg (35.0-45.0); BG PH 7.416 (7.350-7.450); BG PO2 105.1 mmHg (75.0-100.0); BG SAMPLE SITE LEFT BRACHIAL; BG TIDAL VOLUME(mL) 500 mL; BG TOTAL HEMOGLOBIN 8.9 g/dL (12.0-18.0); BG VENT MODE VENT - A/C; BG VENT RATE 22 set
[2018-09-15] MEDS ORDERED: DEXTROSE 50% WATER 50ML SYRINGE IV PRN (15:30)
[2018-09-15] MEDS ORDERED: PIPERACILLIN/TAZ 3.375G PREMIX 50 ML IV SCH (16:00)
[2018-09-15] MEDS ORDERED: AMIKACIN SULFATE 250 MG in SODIUM CHLORIDE 0.9% 50 ML IV NR (16:30)
[2018-09-15] MEDS: PHENYLEPHRINE 80 MG in DEXT 5% WATER 492 ML IV PRN (16:39)
[2018-09-15] MEDS: NOREPINEPHRINE 32 MG in DEXT 5% WATER 468 ML IV PRN (16:40)
[2018-09-15] MEDS ORDERED: KCL 20MEQ/100ML PREMIX 100 ML IV NR (17:00)
[2018-09-15] MEDS ORDERED: VANCOMYCIN 1 G PREMIX 200 ML IV NR (17:00)
[2018-09-15] MEDS: BLOOD SUGAR DIAGNOSTIC STRIP TEST SCH (17:05)
[2018-09-15] MEDS: INSULIN LISPRO 100 UNITS/ML SUBCUT SCH (17:05)
[2018-09-15] MEDS: PANTOPRAZOLE SODIUM 40 MG/VIAL IV SCH (17:15)
[2018-09-15] MEDS ORDERED: MEROPENEM 500 MG in SODIUM CHLORIDE 0.9% 50 ML IV SCH (18:00)
[2018-09-16] VITALS (16 sets, daily range): BP systolic 26–179; BP diastolic 15–83
[2018-09-16] MEDS: PHENYLEPHRINE 80 MG in DEXT 5% WATER 492 ML IV PRN ×2 (00:37→08:19)
[2018-09-16] MEDS: BLOOD SUGAR DIAGNOSTIC STRIP TEST SCH ×2 (00:45→05:16)
[2018-09-16] MEDS: INSULIN LISPRO 100 UNITS/ML SUBCUT SCH ×2 (01:13→05:25)
[2018-09-16 06:05] LABS: HEMATOCRIT. 34.3 % (36.0-48.0); HEMOGLOBIN. 10.2 g/dL (12.0-16.0); MEAN CORPUSCULAR HEMOGLOBIN 36.7 pg (28.0-32.0); MEAN CORPUSCULAR VOLUME 123.3 fL (81.0-99.0); MEAN PLATELET VOLUME 9.2 fl (7.4-10.4); RED BLOOD CELL COUNT 2.78 mill/uL (4.2-5.4)
[2018-09-16 06:20] LABS: CREATINE KINASE 256 IU/L (26-192)
[2018-09-16 06:53] LABS: HEPATITIS B SURFACE ANTIGEN NEGATIVE
[2018-09-16 07:23] LABS: HEPATITIS A AB IGM NEGATIVE (NEGATIVE)
[2018-09-16] MEDS: PANTOPRAZOLE SODIUM 40 MG/VIAL IV SCH (08:18)
[2018-09-16] MEDS: NOREPINEPHRINE 32 MG in DEXT 5% WATER 468 ML IV PRN (08:19)
[2018-09-16 09:32] LABS: BG BASE EXCESS -21.7 mmol/L (-2.0-2.0); BG CARBOXYHEMOGLOBIN 0.3 % (0.5-1.5); BG FRACTION INSPIRED OXYGEN 50; BG HCO3 ACT 5.6 mmol/L (22.0-26.0); BG METHEMOGLOBIN 0.3 % (0.0-1.5); BG OXYHEMOGLOBIN 96.4 % (94.0-97.0); BG PCO2 17.7 mmHg (35.0-45.0); BG PEEP (cmH2O) 0 cmH2O; BG PH 7.121 (7.350-7.450); BG PO2 111.4 mmHg (75.0-100.0); BG SAMPLE SITE LEFT RADIAL; BG TIDAL VOLUME(mL) 500 mL; BG TOTAL HEMOGLOBIN 10.8 g/dL (12.0-18.0); BG VENT MODE VENT - A/C; BG VENT RATE 22 set
[2018-09-16 09:54] LABS: PLATELET 206 x1000/uL (130-400); PLATELET ESTIMATE NORMAL
[2018-09-16] MEDS ORDERED: MORPHINE SULFATE 100 MG in DEXT 5% WATER 90 ML IV PRN (11:00)
[2018-09-16] MEDS ORDERED: LORAZEPAM 2MG/ML CPJ IV PRN (12:45)
[2018-09-16] MEDS ORDERED: IPRATROPIUM/ALBUTEROL 0.5-3(2.5)MG/3ML NEB HHN PRN (12:45)
[2018-09-16] MEDS ORDERED: ATROPINE SULFATE 1% OPHTH 2ML SL PRN (14:00)
== END 2018-09-16 13:35 | disposition expired | DRG 871 ==
LOC: ER 06:45 → CVICU 08:54 → EDBEDREQSVC 09:06 → EDBEDREQTM 09:08 → EDBEDREQ 09:08 → ENRESERV 11:49
PROVIDERS: ADMIT Internal Medicine; ATTEND Internal Medicine
PROC: 5A1945Z Respiratory Ventilation, 24-96 Consecutive Hours (ICD-10-PCS; principal; 2018-09-15)
PROC: 06H033Z Insertion of Infusion Device into Inferior Vena Cava, Percutaneous Approach (ICD-10-PCS; 2018-09-15)
PROC: B549ZZA Ultrasonography of Inferior Vena Cava, Guidance (ICD-10-PCS; 2018-09-15)
PROC: 5A1D70Z Performance of Urinary Filtration, Intermittent, Less than 6 Hours Per Day (ICD-10-PCS; 2018-09-15)
PROC: 0BH17EZ Insertion of Endotracheal Airway into Trachea, Via Natural or Artificial Opening (ICD-10-PCS; 2018-09-15)
DX: A41.9 Sepsis, unspecified organism (principal); J96.00 Acute respiratory failure, unspecified whether with hypoxia or hypercapnia; K72.00 Acute and subacute hepatic failure without coma; G92 Toxic encephalopathy; R65.21 Severe sepsis with septic shock; N18.6 End stage renal disease; N17.9 Acute kidney failure, unspecified; D68.9 Coagulation defect, unspecified; E87.2 Acidosis; N39.0 Urinary tract infection, site not specified; I12.0 Hypertensive chronic kidney disease with stage 5 chronic kidney disease or end stage renal disease; E87.70 Fluid overload, unspecified; F41.9 Anxiety disorder, unspecified; Z99.2 Dependence on renal dialysis; D63.8 Anemia in other chronic diseases classified elsewhere; E11.22 Type 2 diabetes mellitus with diabetic chronic kidney disease; E11.40 Type 2 diabetes mellitus with diabetic neuropathy, unspecified; F03.90 Unspecified dementia, unspecified severity, without behavioral disturbance, psychotic disturbance, mood disturbance, and anxiety; F32.9 Major depressive disorder, single episode, unspecified; I27.20 Pulmonary hypertension, unspecified; J32.3 Chronic sphenoidal sinusitis; M19.90 Unspecified osteoarthritis, unspecified site; Z51.5 Encounter for palliative care; Z66 Do not resuscitate; Z78.1 Physical restraint status; Z86.718 Personal history of other venous thrombosis and embolism
CPT/HCPCS: 36415; 36569; 36600; 71045; 74018; 76937; 80202; 82140; 82375; 82550; 82805; 82962; 83605; 83880; 84484; 86705; 86709; 86803; 86850; 86900; 87070; 87077; 87186; 87340; 93005; 96365; 99291; C9113; J0278; J1580; J1815; J2185; J2370; J2543; J3370; J3480; J3490; J7030; J7050; J7060